=== PATIENT | female | born 1975 | race Caucasian/White ===

== ENCOUNTER 2024-05-21 09:28 | Outpatient (REF) | payer MEDICAID, SELFPAY ==
--- OUTSIDE RECORDS SUMMARY | 2024-05-21 10:22 | XMS_ITS | Encounter Summary ---
Author Organization [employer] Address [address] [place] [address] Care Team Providers Care Locator Name Role Phone Physician, No Pcp Primary Care Provider Unavaila ble Encounter Details Date Type Department Care Team (Late st Contact Info) Description 05/03/[address] [facility] - Main Lab [address] [facility] [place] [address] Katerin Christianson MD [address] [place] [address] [place] [address] Encounter for screening for malignant neoplasm of cervix Social History Tobacco Use Types Packs/Day Years Used Date Smoking Tobacco: Never Assessed Comments Unknown Sex and Gender Information Value Date Recorded Sex Assigned at Female 01/21/2024 3:02 PM EST Legal Sex Female 3:44 PM EDT Gender Identity Female 01/21/2024 3:02 PM EST Sexual Orientation Choose not to disclose 2023 3:02 PM EST documented as of this encounter Functional Status * Are you deaf or do you have serious difficulty hearing? Answer Date of Assessment Author No 01/21/2024 5:21 PM EST Reymundo Booth RN * Are you blind or do you have serious difficulty seeing, even when wearing glasses? Answer Date of Assessment Author No 01/21/2024 5:21 PM Reymundo Aleman RN * Do you have serious difficulty walking or climbing stairs? Answer Date of Assessment Author No 01/21/2024 5:21 PM Reymundo Aleman RN * Do you have serious difficulty dressing or bathing? Answer Date of Assessment Author No 01/21/2024 5:21 PM Reymundo Aleman RN * Because of a physical, mental, or emotional condition, do you have serious difficulty doing errandsalone such as visiting the doctor? Answer Date of Assessment Author No 01/21/2024 5:21 PM Reymundo Aleman RN documented as of this encounter Mental Status * Because of a physical, mental, or emotional condition, do you have serious difficulty concentrating, remembering, or making decisions? (5 years old or older) Answer Entry Date Author No 01/21/2024 5:21 PM Reymundo Aleman RN documented in this encounter Plan of Treatment Not on file documented as of this encounter Procedures Procedure Name Priority Date/Time Associated Diagnosis Comments HPV GENOTYPE Routine 04/29/2024 12:00 AM EST Encounter for screening for malignant neoplasm of cervix HPV WITH REFLEX GENOTYPE Routine 04/29/2024 12:00 AM EST Encounter for screening for malignant neoplasm of cervix PAP SMEAR Routine 04/29/2024 12:00 AM EST Encounter for screening for malignant neoplasm of cervix documented in this encounter Results * (ABNORMAL) HPV genotype (04/29/2024 12:00 AM EST) HPV Type 16 Negative Negative LAB MICROBIOLOGY METHOD 05/07/2024 5:39 PM EST [facility] HPV Type 18/45 Positive(A) Negative LAB MICROBIOLOGY METHOD 05/07/2024 5:39 PM EST [facility] HPV Type 16,18, and others Valid LAB MICROBIOLOGY METHOD 05/07/2024 5:39 PM EST [facility] Brushing/Spatula Cervix uteri structure / Unknown 04/29/2024 05/03/2024 6:44 AM EST us Katerin Christianson MD LAB MOLECULAR DIAGNOSTICS ORD ERABLES Final Result [facility] [address] [place] [address], [place] [phone] * (ABNORMAL) HPV with reflex genotype (04/29/2024 12:00 AM EST) HPV Positive( A) Negative LAB MICROBIOLOGY METHOD 05/03/2024 3:12 PM [facility] Brushing/Spatula Cervix uteri structure / Unknown 04/29/2024 05/03/2024 6:44 AM EST Katerin Christianson MD LAB MOLECULAR DIAGNOSTICS ORD ERABLES Final Result [facility] [address] [place] [address], * Pap smear (04/29/2024 12:00 AM EST) Interpretation Negative for intraepithelial lesion or malignancy 05/05/2024 4:45 PM [facility] Other Findings Shift in rand suggestive of bacterial vaginosis 05/05/2024 4:45 PM [facility] Specimen Adequacy Satisfactory for evaluation, endocervical/dowell sformation zone component present 05/05/2024 4:45 PM [facility] Pap Methodology Liquid Based Pap Test 05/05/2024 4:45 PM [facility] Disclaimer The Pap test is a screening test which carries an inherent false negative rate. These test results should be correlated with the patient's clinical findings and history. This Pap test was processed using an automated screening system. Technical cytopathology services provided by [facility], at [address] [place] [address] (CLIA # [id number]/Kristy Rodriguez MD, Winding Lathe Operator.) 05/05/2024 4:45 PM [facility] Console Pap Interpretation Reported 05/05/2024 4:45 PM EST [facility] Brushing/Spatula Cervix uteri structure / Unknown 04/29/2024 05/03/2024 6:44 AM EST us Katerin Christianson MD LAB CYTOLOGY ORDERABLES Final Result Performing Organization Address City/State/[facility] Co de Phone Number [facility] [address] [place] [address], documented in this encounter Visit Diagnoses Diagnosis Encounter for screening for malignant neoplasm of cervix documented in this encounter Care Teams Locator Relationship Specialty Start Date End Date Physician, No Pcp PCP - General 01/21/24 documented as of this encounter
--- OUTSIDE RECORDS SUMMARY | 2024-05-21 10:22 | XMS_ITS | Clinical Summary ---
Author Organization [facility] Address [address] [place] [address] Phone Care Team Providers Care Lab Technician Name Role Phone Physician, No Pcp Primary Care Provider Unavaila ble Allergies No known active allergies Encounters Date Type Department Care Team Description 05/03/2024 Lab Requisition [facility] - Main Lab [address] [facility] [place] [address] Katerin Christianson MD Encounter for screening for malignant neoplasm of cervix from Last 3 Months Medical History Medical History Date Comments Lupus erythematosus tumidus Fibromyalgia Hypothyroid Thyroid cancer (CMS/HCC) Social History Tobacco Use Types Packs/Day Years Used Date Smoking Tobacco: Never Assessed Comments Unknown Sex and Gender Information Value Date Recorded Sex Assigned at Female 01/21/2024 3:02 PM EST Legal Sex Female 3:44 PM EDT Gender Identity Female 01/21/2024 3:02 PM EST Sexual Orientation Choose not to disclose 2023 3:02 PM EST Obstetrics History Last Filed Vital Signs Vital Sign Reading Time Taken Comments Blood Pressure 140/84 01/21/2024 3:46 PM EST Pulse 65 01/21/2024 3:46 PM EST Temperature 36.5 ??C (97.7 ??F) 01/21/2024 3:46 PM ES T Respiratory Rate 16 01/21/2024 3:46 PM EST Oxygen Saturation 100% 01/21/2024 3:46 PM EST Inhaled Oxygen Concentration - - Weight 73.9 kg (163 lb) 01/21/2024 3:46 PM EST Height 167.6 cm (5' 6 ) 01/21/2024 3:46 PM EST Body Mass Index 26.31 01/21/2024 3:46 PM EST Plan of Treatment Health Maintenance Due Date Last Done Comments Breast Cancer Screening 1975 DTaP,Tdap,and Td Vaccines (1 - Tdap) 09/16/1995 Hepatitis B Vaccines (1 of 3 - 19+ 3-dose series) 09/16/1995 COVID-19 Vaccine ( - 2023-2 5 season) 2023 Influenza Vaccine (#1) 2023 Colorectal Cancer Screening: Colonoscopy 12/18/2023 Depression Screening 12/18/2023 HIV Screening 12/18/2023 Hepatitis C Screening 12/18/2023 Social Influencers of Health Screening 12/18/2023 Cervical Cancer Screening: HPV 04/29/2029 0 04/29/2024, 04/29/2024 HIB Vaccines Aged Out No longer eligi ble based on patient's age to complete this topic HPV Vaccines Aged Out No longer eligi ble based on patient's age to complete this topic Hepatitis A Vaccines Aged Out No long er eligible based on patient's age to complete this topic IPV Vaccines Aged Out No longer eligi ble based on patient's age to complete this topic MMR Vaccines Aged Out No longer eligi ble based on patient's age to complete this topic Meningococcal ACWY Vaccine Aged Out N o longer eligible based on patient's age to complete this topic Meningococcal B Vacine Aged Out No lo nger eligible based on patient's age to complete this topic Pneumococcal Vaccine: Pediatrics (0 to 5 Years) and At-Risk Patients (6 to 64 Years) Aged Out No longer eligible b ased on patient's age to complete this topic RSV Immunization Patients Under 20 months Aged Out No longer eligible b ased on patient's age to complete this topic Varicella Vaccines Aged Out No longer eligible based on patient's age to complete this topic Procedures Procedure Name Priority Date/Time Associated Diagnosis Comments PAP SMEAR Routine 04/29/2024 12:00 AM EST Encounter for screening for malignant neoplasm of cervix HPV GENOTYPE Routine 04/29/2024 12:00 AM EST Encounter for screening for malignant neoplasm of cervix HPV WITH REFLEX GENOTYPE Routine 04/29/2024 12:00 AM EST Encounter for screening for malignant neoplasm of cervix from Last 3 Months Results * (ABNORMAL) HPV genotype (04/29/2024 12:00 AM EST) HPV Type 16 Negative Negative LAB MICROBIOLOGY METHOD 05/07/2024 5:39 PM EST [facility] HPV Type 18/45 Positive(A) Negative LAB MICROBIOLOGY METHOD 05/07/2024 5:39 PM EST [facility] HPV Type 16,18, and others Valid LAB MICROBIOLOGY METHOD 05/07/2024 5:39 PM EST [facility] Brushing/Spatula Cervix uteri structure / Unknown 04/29/2024 05/03/2024 6:44 AM EST Katerin Christianson MD LAB MOLECULAR DIAGNOSTICS ORD ERABLES Final Result Performing Organization Address City/[facility]/ZIP Co de Phone Number [facility] [address] [place] [address], [place] [phone] * (ABNORMAL) HPV with reflex genotype (04/29/2024 12:00 AM EST) HPV Positive( A) Negative LAB MICROBIOLOGY METHOD 05/03/2024 3:12 PM EST [facility] Brushing/Spatula Cervix uteri structure / Unknown 04/29/2024 05/03/2024 6:44 AM EST Katerin Christianson MD LAB MOLECULAR DIAGNOSTICS ORD ERABLES Final Result [facility] [address] [place] [address], [place] [phone] * Pap smear (04/29/2024 12:00 AM EST) Interpretation Negative for intraepithelial lesion or malignancy 05/05/2024 4:45 PM EST [facility] Other Findings Shift in rand suggestive of bacterial vaginosis 05/05/2024 4:45 PM [facility] Specimen Adequacy Satisfactory for evaluation, endocervical/dowell sformation zone component present 05/05/2024 4:45 PM [facility] Pap Methodology Liquid Based Pap Test 05/05/2024 4:45 PM [facility] Disclaimer The Pap test is a screening test which carries an inherent false negative rate. These test results should be correlated with the patient's clinical findings and history. This Pap test was processed using an automated screening system. Technical cytopathology services provided by [facility], at [address] [place] [address] (CLIA # [id number]/Kristy Rodriguez MD, Bar Porter.) 05/05/2024 4:45 PM [facility] Console Pap Interpretation Reported 05/05/2024 4:45 PM [facility] Brushing/Spatula Cervix uteri structure / Unknown 04/29/2024 05/03/2024 6:44 AM EST Katerin Christianson MD LAB CYTOLOGY ORDERABLES Final Result [facility] [address] [place] [address], from Last 3 Months Insurance MEDICAID - [place] Care Teams Lab Technician Relationship Specialty Start Date End Date Physician, No Pcp PCP - General 01/21/24
[2024-05-22 12:38] LABS: Thyroglobulin 2.3 ng/mL
== END 2024-05-21 09:29 | disposition home or self-care (01) ==
LOC: HO.LAB 09:28
PROVIDERS: PCP Internal Medicine; Visit Provider Internal Medicine
DX: G56.01 Carpal tunnel syndrome, right upper limb (principal); M32.9 Systemic lupus erythematosus, unspecified; M65.4 Radial styloid tenosynovitis [de Quervain]; M79.7 Fibromyalgia
CPT/HCPCS: 36415; 84432; 84443

== ENCOUNTER 2024-06-02 11:22 | Outpatient (REF) | payer MEDICAID, SELFPAY ==
--- NOTE | 2024-06-02 | EMG_ITS ---
Chief complaint: Numbness on right thumb and lateral wrist, pain on both wrists right worse than left, finger numbness at nighttime. Reason for referral: Evaluate for ulnar neuropathy Referred by: Dr. Christianson Procedure done: Bilateral upper extremities NCS/EMG Precautions and/or limitations: None The limb temperature was monitored continuously and remained between 32-36 degrees C during the performance of the NCS. Nerve Conduction Studies Anti Sensory Summary Table ?Stim Site NR Onset (ms) Norm Onset (ms) Peak (ms) Norm Peak (ms) O-P Amp (?V) Norm O-P Amp Site1 Site2 Delta-0 (ms) Dist (cm) Jimmie (m/s) Norm Jimmie (m/s) Left Median Anti Sensory (2nd Digit) Wrist ? 2.5 3.2 <3.6 45.1 >10 Wrist 2nd Digit 2.5 14.0 56 Right Median Anti Sensory (2nd Digit) Wrist ? 2.6 3.3 <3.6 33.3 >10 Wrist 2nd Digit 2.6 14.0 54 Right Radial Anti Sensory (Thumb) Forearm ? 2.0 2.7 <3.1 15.3 Forearm Thumb 2.0 0.0 Left Ulnar Anti Sensory (5th Digit) Wrist ? 2.4 3.1 <3.7 27.2 >15.0 Wrist 5th Digit 2.4 14.0 58 Right Ulnar Anti Sensory (5th Digit) Wrist ? 2.2 3.0 <3.7 23.2 >15.0 Wrist 5th Digit 2.2 14.0 64 Motor Summary Table ?Stim Site NR Onset (ms) Norm Onset (ms) O-P Amp (mV) Norm O-P Amp iAmp (mV) Amp (1st) (%) Site1 Site2 Delta-0 (ms) Dist (cm) Jimmie (m/s) Norm Jimmie (m/s) Left Median Motor (Abd Poll Brev) Wrist ? 3.4 <3.9 11.9 >4.5 14.2 100.0 Elbow Wrist 3.9 21.0 54 >45 Elbow ? 7.3 10.6 12.8 89.1 Right Median Motor (Abd Poll Brev) Wrist ? 3.7 <3.9 12.7 >4.5 14.9 100.0 Elbow Wrist 3.8 21.0 55 >45 Elbow ? 7.5 12.4 14.6 97.6 Left Ulnar Motor (Abd Dig Minimi) Wrist ? 2.9 <3.0 7.8 >5 9.1 100.0 B Elbow Wrist 3.4 19.0 56 >45 B Elbow ? 6.3 7.0 8.6 89.7 A Elbow B Elbow 2.1 10.0 48 >45 A Elbow ? 8.4 6.7 8.1 85.9 Right Ulnar Motor (Abd Dig Minimi) Wrist ? 3.0 <3.0 8.4 >5 10.3 100.0 B Elbow Wrist 3.0 19.0 63 >45 B Elbow ? 6.0 8.0 10.0 95.2 A Elbow B Elbow 1.3 10.0 77 >45 A Elbow ? 7.3 7.3 9.0 86.9 EMG ?Side Muscle Nerve Root Ins Act Fibs Psw Amp Dur Poly Recrt Int Pat Comment Right 1stDorInt Ulnar C8-T1 Nml Nml Nml Nml Nml 0 Nml Complete Right FlexCarRad Median C6-7 Nml Nml Nml Nml Nml 0 Nml Complete Right Biceps Musculocut C5-6 Nml Nml Nml Nml Nml 0 Nml Complete Right Triceps Radial C6-7-8 Nml Nml Nml Nml Nml 0 Nml Complete Right Deltoid Axillary C5-6 Nml Nml Nml Nml Nml 0 Nml Complete Left 1stDorInt Ulnar C8-T1 Nml Nml Nml Nml Nml 0 Nml Complete Left FlexCarRad Median C6-7 Nml Nml Nml Nml Nml 0 Nml Complete Left Biceps Musculocut C5-6 Nml Nml Nml Nml Nml 0 Nml Complete Left Triceps Radial C6-7-8 Nml Nml Nml Nml Nml 0 Nml Complete Left Deltoid Axillary C5-6 Nml Nml Nml Nml Nml 0 Nml Complete FINDINGS: All motor and sensory nerves tested showed normal latencies, amplitudes and conduction velocities. Concentric needle EMG was performed in selected muscles of the bilateral upper extremities. Study did not reveal signs of electric abnormalities as shown in the table above. IMPRESSION: 1. This is a normal study. 2. There is no electrodiagnostic evidence for median neuropathy, ulnar neuropathy, brachial plexopathy, or cervical radiculopathy. Thank you for your kind referral. Agnieszka Ernst MD, JOHANNA Board Certified, [place] Board [employer] and Rehabilitation (ABPMR) Board Certified, [place] Board of Electrodiagnostic Medicine (ABEM) CODIN [phone] MTDD
--- OUTSIDE RECORDS SUMMARY | 2024-06-02 13:44 | XMS_ITS | Encounter Summary ---
Author Organization [employer] Address [address] [place] [address] Care Team Providers Care Machine Operator Slitter Technician Name Role Phone Physician, No Pcp Primary Care Provider Unavaila ble Encounter Details Date Type Department Care Team (Late st Contact Info) Description 05/03/2024 Lab Requisition [facility] - Main Lab [address] [facility] [place] [address] Katerin Christianson MD [address] [place] [address] [place] [address] Encounter for screening for malignant neoplasm of [...] LAB MICROBIOLOGY METHOD 05/07/2024 5:39 PM EST [facility] HPV Type 18/45 Positive(A) Negative LAB MICROBIOLOGY METHOD 05/07/2024 5:39 PM EST [facility] HPV Type 16,18, and others Valid LAB MICROBIOLOGY METHOD 05/07/2024 5:39 PM EST [facility] Brushing/Spatula Cervix uteri structure / Unknown 04/29/2024 05/03/2024 6:44 AM EST us Katerin Christianson MD LAB MOLECULAR DIAGNOSTICS ORD ERABLES Final Result [facility] [address] [place] [address], [place] [phone] * (ABNORMAL) HPV with reflex genotype (04/29/2024 12:00 AM EST) HPV Positive( A) Negative LAB MICROBIOLOGY METHOD 05/03/2024 3:12 PM [facility] Brushing/Spatula Cervix uteri structure / Unknown 04/29/2024 05/03/2024 6:44 AM EST Katerin Christianson MD LAB MOLECULAR DIAGNOSTICS ORD ERABLES Final Result [facility] [address] [place] [address], * Pap smear (04/29/2024 12:00 AM EST) Interpretation Negative for intraepithelial lesion or malignancy 05/05/2024 4:45 PM [facility] Other Findings Shift in rand suggestive of bacterial vaginosis 05/05/2024 4:45 PM [facility] Specimen Adequacy Satisfactory for evaluation, endocervical/dowell sformation zone component present 05/05/2024 4:45 PM [facility] Pap Methodology Liquid Based Pap Test 05/05/2024 4:45 PM [facility] Disclaimer The Pap test is a screening test which carries an inherent false negative rate. These test results should be correlated with the patient's clinical findings and history. This Pap test was processed using an automated screening system. Technical cytopathology services provided by [facility], at [address] [place] [address] (CLIA # [id number]/Kristy Rodriguez MD, Server Assistant.) 05/05/2024 4:45 PM [facility] Console Pap Interpretation Reported 05/05/2024 4:45 PM EST [facility] Brushing/Spatula Cervix uteri structure / Unknown 04/29/2024 05/03/2024 6:44 AM EST us Katerin Christianson MD LAB CYTOLOGY ORDERABLES Final Result Performing Organization Address City/State/[facility] Co de Phone Number [facility] [address] [place] [address], documented in this encounter Visit Diagnoses Diagnosis Encounter for screening for malignant neoplasm of cervix documented in this encounter Care Teams Machine Operator Slitter Technician Relationship Specialty Start Date End Date Physician, No Pcp PCP - General 01/21/24 documented as of this encounter
--- OUTSIDE RECORDS SUMMARY | 2024-06-02 13:44 | XMS_ITS | Clinical Summary ---
Author Organization [facility] Address [address] [place] [address] Phone Care Team Providers Care Compounding Technician Name Role Phone Physician, No Pcp Primary Care Provider Unavaila ble Allergies No known active allergies Encounters Date Type Department Care Team Description 05/03/2024 Lab Requisition [facility] - Main Lab 299 [facility] [place] [address] Katerin Christianson MD Encounter for [...] LAB MICROBIOLOGY METHOD 05/07/2024 5:39 PM EST [facility] HPV Type 18/45 Positive(A) Negative LAB MICROBIOLOGY METHOD 05/07/2024 5:39 PM EST [facility] HPV Type 16,18, and others Valid LAB MICROBIOLOGY METHOD 05/07/2024 5:39 PM EST [facility] Brushing/Spatula Cervix uteri structure / Unknown 04/29/2024 05/03/2024 6:44 AM EST Katerin Christianson MD LAB MOLECULAR DIAGNOSTICS ORD ERABLES Final Result Performing Organization Address City/[facility]/ZIP Co de Phone Number [facility] [address] [place] [address], [place] [phone] * (ABNORMAL) HPV with reflex genotype (04/29/2024 12:00 AM EST) HPV Positive( A) Negative LAB MICROBIOLOGY METHOD 05/03/2024 3:12 PM EST [facility] Brushing/Spatula Cervix uteri structure / Unknown 04/29/2024 05/03/2024 6:44 AM EST Katerin Christianson MD LAB MOLECULAR DIAGNOSTICS ORD ERABLES Final Result [facility] [address] [place] [address], [place] [phone] * Pap smear (04/29/2024 12:00 AM EST) Interpretation Negative for intraepithelial lesion or malignancy 05/05/2024 4:45 PM EST [facility] Other Findings Shift in rand suggestive of bacterial vaginosis 05/05/2024 4:45 PM [facility] Specimen Adequacy Satisfactory for evaluation, endocervical/dowell sformation zone component present 05/05/2024 4:45 PM [facility] Pap Methodology Liquid Based Pap Test 05/05/2024 4:45 PM [facility] Disclaimer The Pap test is a screening test which carries an inherent false negative rate. These test results should be correlated with the patient's clinical findings and history. This Pap test was processed using an automated screening system. Technical cytopathology services provided by [facility], at [address] [place] [address] (CLIA # [id number]/Kristy Rodriguez MD, Cannery Tender Engineer.) 05/05/2024 4:45 PM [facility] Console Pap Interpretation Reported 05/05/2024 4:45 PM [facility] Brushing/Spatula Cervix uteri structure / Unknown 04/29/2024 05/03/2024 6:44 AM EST Katerin Christianson MD LAB CYTOLOGY ORDERABLES Final Result [facility] [address] [place] [address], from Last 3 Months Insurance [place] - [place] Care Teams Compounding Technician Relationship Specialty Start Date End Date Physician, No Pcp PCP - General 01/21/24
== END 2024-06-02 11:23 | disposition home or self-care (01) ==
LOC: HO.NEURO 11:22
PROVIDERS: PCP Internal Medicine; Visit Provider Internal Medicine
DX: G56.23 Lesion of ulnar nerve, bilateral upper limbs (principal); R20.0 Anesthesia of skin
CPT/HCPCS: 95886; 95911

== ENCOUNTER → 2024-06-02 11:30 | Outpatient (BNV) | payer MEDICAID, SELFPAY | PROVIDERS: PCP Internal Medicine; Visit Provider Physical Medicine & Rehabilitation | DX: R20.0 Anesthesia of skin (principal); R20.2 Paresthesia of skin | CPT/HCPCS: 95886; 95911 ==

== ENCOUNTER 2024-07-13 14:58 | Outpatient (AMB) | payer MEDICAID, SELFPAY ==
--- NOTE | 2024-07-13 15:08 | A.OFFVIS_ITS ---
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 She states at night her bilateral hands are asleep. She reports throbbing pain when her hand is at her side just hanging and a current feeling running through the right arm with extension to reach for things. She reports intermittent swelling. She is wearing a Velcro wrist splint and states this helps her mildly. IMPRESSION: 1. This is a normal study. 2. There is no electrodiagnostic evidence for median neuropathy, ulnar neuropathy, brachial plexopathy, or cervical radiculopathy. 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 She states at night her bilateral hands are asleep. She reports throbbing pain when her hand is at her side just hanging and a current feeling running through the right arm with extension to reach for things. She reports intermittent swelling. She is wearing a Velcro wrist splint and states this helps her mildly. IMPRESSION: 1. This is a normal study. 2. There is no electrodiagnostic evidence for median neuropathy, ulnar neur opathy, brachial plexopathy, or cervical radiculopathy. 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 Good APB muscle firing and good finger cross. Vascular: Capillary refill brisk. ROM: Patient can make a fist and extend all their digits. Skin: No lacerations or abrasions noted. General: No ecchymosis. No erythema or evidence of infection. [] Assessment & Plan Assessment & Plan (1) Numbness and tingling in right hand: Code(s): R20.0 - Anesthesia of skin; R20.2 - Paresthesia of skin Category: Medical Plan 1. Numbness and tingling of right hand Negative EMG Patient is educated about this condition Patient is educated about the typical treatment course At this time, patient is informed that no acute intervention is did, as she has a negative EMG and nerve conduction study Patient is educated on symptomatic management Follow-up in 6 months for referral for repeat EMG of numbness and tingling persists Coding Level of Care Code New Pt Level 3 (69828) Diagnoses Numbness and tingling in right hand R20.0; R20.2
[2024-07-13 15:09] VITALS: BMI 25.8
--- OUTSIDE RECORDS SUMMARY | 2024-07-13 16:10 | XMS_ITS | Clinical Summary ---
Author Organization [facility] Address [address] [place] [address] Phone Care Team Providers Care Boat Hand Name Role Phone Physician, No Pcp Primary Care Provider Unavaila ble Allergies No known active allergies Encounters Date Type Department Care Team Description 05/03/2024 Lab Requisition [facility] - Main Lab [address] [facility] [place] [address] Katerin Christianson MD Encounter for screening for malignant neoplasm of cervix from Last 3 Months Medical History Medical History Date Comments Lupus erythematosus tumidus Fibromyalgia Hypothyroid Thyroid cancer (CMS/HCC V24, CMS/HCC V28) Social History Tobacco Use Types Packs/Day Years [...] - 19+ 3-dose series) 09/16/1995 COVID-19 Vaccine (1 - 2023-2 5 season) 2023 Colorectal Cancer Screening: Colonoscopy 12/18/2023 Depression Screening 12/18/2023 HIV Screening 12/18/2023 Hepatitis C Screening 12/18/2023 Social Influencers of Health Screening 12/18/2023 Influenza Vaccine (Season Ended) 2024 Cervical Cancer Screening: HPV 04/29/2029 0 04/29/2024, [...] age to complete this topic Meningococcal B Vaccine Aged Out No l onger eligible based on patient's age to complete [...] LAB MICROBIOLOGY METHOD 05/07/2024 5:39 PM EST [facility] HPV Type 18/45 Positive(A) Negative LAB MICROBIOLOGY METHOD 05/07/2024 5:39 PM EST [facility] HPV Type 16,18, and others Valid LAB MICROBIOLOGY METHOD 05/07/2024 5:39 PM EST [facility] Brushing/Spatula Cervix uteri structure / Unknown 04/29/2024 05/03/2024 6:44 AM EST Katerin Christianson MD LAB MOLECULAR DIAGNOSTICS ORD ERABLES Final Result Performing Organization Address City/Special Care Hospital/ZIP Co de Phone Number [facility] [address] [place] [address], [place] [phone] * (ABNORMAL) HPV with reflex genotype (04/29/2024 12:00 AM EST) HPV Positive( A) Negative LAB MICROBIOLOGY METHOD 05/03/2024 3:12 PM EST [facility] Brushing/Spatula Cervix uteri structure / Unknown 04/29/2024 05/03/2024 6:44 AM EST Katerin Christianson MD LAB MOLECULAR DIAGNOSTICS ORD ERABLES Final Result [facility] [address] [place] [address], [place] [phone] * Pap smear (04/29/2024 12:00 AM EST) Interpretation Negative for intraepithelial lesion or malignancy 05/05/2024 4:45 PM EST [facility] Other Findings Shift in rand suggestive of bacterial vaginosis 05/05/2024 4:45 PM [facility] Specimen Adequacy Satisfactory for evaluation, endocervical/dowell sformation zone component present 05/05/2024 4:45 PM [facility] Pap Methodology Liquid Based Pap Test 05/05/2024 4:45 PM [facility] Disclaimer The Pap test is a screening test which carries an inherent false negative rate. These test results should be correlated with the patient's clinical findings and history. This Pap test was processed using an automated screening system. Technical cytopathology services provided by [facility], at [address] [place] [address] (CLIA # [id number]/Kristy Rodriguez MD, Physician General Internal Medicine.) 05/05/2024 4:45 PM [facility] Console Pap Interpretation Reported 05/05/2024 4:45 PM [facility] Brushing/Spatula Cervix uteri structure / Unknown 04/29/2024 05/03/2024 6:44 AM EST us Katerin Christianson MD LAB CYTOLOGY ORDERABLES Final Result [facility] [address] [place] [address], [place] [phone] from Last 3 Months Insurance MEDICAID - [place] Care Teams Boat Hand Relationship Specialty Start Date End Date Physician, No Pcp PCP - General 01/21/24
--- OUTSIDE RECORDS SUMMARY | 2024-07-13 16:10 | XMS_ITS | Encounter Summary ---
Author Organization [facility] Address [address] [place] [address] Care Team Providers Care Electronic Organ Mechanic Name Role Phone Physician, No Pcp Primary Care Provider Unavaila ble Encounter Details Date Type Department Care Team (Late st Contact Info) Description 05/03/2024 Lab Requisition [facility] - Main Lab [address] [facility] [place] [address] Katerin Christianson MD [address] [place] [address] [place] [address] Encounter for screening for malignant neoplasm of [...] LAB MICROBIOLOGY METHOD 05/07/2024 5:39 PM EST [facility] HPV Type 18/45 Positive(A) Negative LAB MICROBIOLOGY METHOD 05/07/2024 5:39 PM EST [facility] HPV Type 16,18, and others Valid LAB MICROBIOLOGY METHOD 05/07/2024 5:39 PM EST [facility] Brushing/Spatula Cervix uteri structure / Unknown 04/29/2024 05/03/2024 6:44 AM EST us Katerin Christianson MD LAB MOLECULAR DIAGNOSTICS ORD ERABLES Final Result [facility] [address] [place] [address], [place] [phone] * (ABNORMAL) HPV with reflex genotype (04/29/2024 12:00 AM EST) HPV Positive( A) Negative LAB MICROBIOLOGY METHOD 05/03/2024 3:12 PM [facility] Brushing/Spatula Cervix uteri structure / Unknown 04/29/2024 05/03/2024 6:44 AM EST Katerin Christianson MD LAB MOLECULAR DIAGNOSTICS ORD ERABLES Final Result [facility] [address] [place] [address], * Pap smear (04/29/2024 12:00 AM EST) Interpretation Negative for intraepithelial lesion or malignancy 05/05/2024 4:45 PM [facility] Other Findings [...] screening system. Technical cytopathology services provided by [facility], at [address] [place] [id number] (CLIA # [id number]/Kristy Rodriguez MD, Bite Block Maker.) 05/05/2024 4:45 PM [facility] Console Pap Interpretation Reported 05/05/2024 4:45 PM EST [facility] Brushing/Spatula Cervix uteri structure / Unknown 04/29/2024 05/03/2024 6:44 AM EST us Katerin Christianson MD LAB CYTOLOGY ORDERABLES Final Result Performing Organization Address City/State/[facility] Co de Phone Number [facility] [address] [place] [address], documented in this encounter Visit Diagnoses Diagnosis Encounter for screening for malignant neoplasm of cervix documented in this encounter Care Teams Electronic Organ Mechanic Relationship Specialty Start Date End Date Physician, No Pcp PCP - General 01/21/24 documented as of this encounter
== END 2024-07-13 15:23 | disposition home or self-care (01) ==
LOC: HO.HOS 14:59
PROVIDERS: PCP Internal Medicine
DX: R20.0 Anesthesia of skin (principal); R20.2 Paresthesia of skin
CPT/HCPCS: 99203

== ENCOUNTER → 2024-07-13 14:58 | Outpatient (BNVA) | payer MEDICAID, SELFPAY | PROVIDERS: PCP Internal Medicine | DX: R20.0 Anesthesia of skin (principal); R20.2 Paresthesia of skin | CPT/HCPCS: 99212 ==

== ENCOUNTER 2024-07-30 13:04 | Outpatient (REF) | payer MEDICAID, SELFPAY ==
[2024-07-30 13:12] LABS: MANUAL DIFF FLAG NO
[2024-07-30 13:50] LABS: Basophils Percent Auto 0.3 % (0-2); Eosinophils Absolute Auto 0.1 X10*3/uL (0.0-0.4); Eosinophils Percent Auto 2.3 % (0-4); Hematocrit 39.5 % (37.0-47.0); Hemoglobin 12.8 g/dl (12.0-16.0); Imm Gran Abs Auto 0.01 X10*3/uL (0.00-0.03); Imm Gran Pct Auto 0.2 % (0.0-0.4); Lymphocytes Absolute Auto 2.1 X10*3/uL (1.2-4.9); Lymphocytes Percent Auto 34.4 % (20-40); Mean Corpuscular HGB Conc 32.4 g/dl (31.0-35.0); Mean Corpuscular Hemoglobin 28.6 pg (27.0-33.0); Mean Corpuscular Volume 88.2 fL (80.0-98.0); Mean Platelet Volume 10.7 fL (9.4-12.3); Monocytes Absolute Auto 0.5 X10*3/uL (0.1-1.2); Neutrophils Absolute Auto 3.4 x10*3/uL (2.0-8.3); Neutrophils Percent Auto 54.8 % (45-73); Platelet Count 200 X10*3/uL (160-400); Red Blood Count 4.48 X10*6/uL (4.20-5.50); Red Cell Distribution Width 12.7 % (11.0-16.0); White Blood Count 6.1 X10*3/uL (4.8-10.8)
[2024-07-30 14:36] LABS: Thyroid Stimulating Hormone 1.43 uIU/mL (0.32-4.0)
== END 2024-07-30 13:05 | disposition home or self-care (01) ==
LOC: HO.LAB 13:04
PROVIDERS: PCP Internal Medicine; Visit Provider Internal Medicine
DX: G56.03 Carpal tunnel syndrome, bilateral upper limbs (principal); G57.63 Lesion of plantar nerve, bilateral lower limbs; K29.60 Other gastritis without bleeding; M35.09 Sjogren syndrome with other organ involvement; Z85.850 Personal history of malignant neoplasm of thyroid
CPT/HCPCS: 36415; 84443; 85025

== ENCOUNTER 2024-09-14 15:34 | Outpatient (REF) | payer MEDICAID, SELFPAY ==
[2024-09-14 17:23] LABS: Free T4 (Free Thyroxine) 0.83 ng/dL (0.71-1.85); Thyroid Stimulating Hormone 1.92 uIU/mL (0.32-4.0)
[2024-09-15 19:08] LABS: Thyroglobulin 2.6 ng/mL; Thyroglobulin Antibodies <1 IU/mL (< or = 1)
== END 2024-09-14 15:35 | disposition home or self-care (01) ==
LOC: HO.LAB 15:34
PROVIDERS: PCP Internal Medicine; Visit Provider Student in an Organized Health Care Education/Training Program
DX: Z08 Encounter for follow-up examination after completed treatment for malignant neoplasm (principal); Z85.850 Personal history of malignant neoplasm of thyroid; Z80.8 Family history of malignant neoplasm of other organs or systems
CPT/HCPCS: 36415; 84432; 84439; 84443; 86800; 99202

== ENCOUNTER 2024-09-14 15:34 | Outpatient (AMB) | payer MEDICAID, SELFPAY ==
[2024-09-14 15:36] VITALS: BP 122/78; PULSE 81; O2SAT 98; BMI 27.1
--- NOTE | 2024-09-14 15:36 | A.OFFVIS_ITS ---
Vital Signs 09/14/24 15:36 Height 5 ft 6 in Weight 167 lb 12.348 oz BMI 27.1 BP 122/78 Blood Pressure Location Rt brachial Position Sitting Pulse 81 Pulse Source Pulse Oximeter Pulse Oximetry (%) 98 Oxygen Delivery Method Room Air Intake Visit Reasons: Thyroid cancer Intake Note: New patient present today for Thyroid cancer. Continuous Churn Buttermaker Required: No Accompanied by: Self / Same As Patient Allergies No Known Allergies Allergy (Verified 09/14/24 15:40) Medication List - Last Reconciled 09/14/24 by Keesha Hernandez MD hydroxychloroquine 400 mg PO DAILY ibuprofen 600 mg PO Q6H naproxen 500 mg PO BID neomycin-polymyxin B-dexameth 3.5mg/mL-10,000 unit/mL-0.1 % drps ophthalmic (eye) omeprazole 40 mg PO DAILY HPI Comments Details: 48-year-old female coming in today for initial evaluation of thyroid cancer. [facility] summer of 2023. History of thyroid cancer All of this was in [place] 2019: found to have to have thyroid nodules 05/2019: FNA biopsy of the right sided nodule, showed thyroid cancer? 2020: Status post right lobectomy which showed cancer. then apparently was followed with surveilance US for left sided nodules, Then moved to [facility] summer 202305/21/2024: TSH 1.40, thyroglobulin 2.3 07/30/2024: TSH: 1.43 reports some fullness in the neck. No difficulty swallowing. Didnt require levothyroxine . Family history of thyroid cancer in brother and maternal cousin. Never smoker Physical exam General: sitting comfortably in no acute distress HEENT: normocephalic/atraumatic, moist oral mucosa Neck: supple, symmetrical, no palpable lymph nodes Cardiac: normal heart sounds Pulm: normal breath sounds B/L, no added breath sounds Abd: not distended, no tenderness Extremities: no edema, no signs of myxedema Laboratory Tests 05/21/24 07/30/24 09:52 13:11 TSH 1.40 1.43 Thyroglobulin 2.3 L [facility] Medical History (Updated 09/14/24 @ 15:53 by Keesha Hernandez MD) Fibromyalgia Lupus (systemic lupus erythematosus) History of thyroid cancer Surgical History (Updated 09/14/24 @ 15:53 by Keesha Hernandez MD) History of lobectomy of thyroid Social History (Updated 07/13/24 @ 15:12 by DEVORA Pascual) Alcohol intake: never Patient Tobacco Use Status: Never used Tobacco Current occupational status: employed 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 This was diagnosed in [facility], status post right lobectomy with pathology showing thyroid cancer. I do not have any pathology report so I do not know the staging or SHAILA risk of recurrence. I am assuming it must have been a low risk cancer given that they did not proceed with completion thyroidectomy or radioactive iodine. She is going to try to obtain some of her records and get them translated because they are in [place]ese. At this time she does report some fullness in her neck and I will obtain a ultrasound of her neck. Reportedly she does have some left-sided nodules but they were small per patient. She did not require levothyroxine postoperatively. Most recent TSH from July 2024 was normal at 1.43. Also her thyroglobulin level of 2.3 is reassuring as after lobectomy ideally we would like to see a level below 30. Plan: -ordered ultrasound of the neck -ordered TSH, free T4, TG and TG antibody levels -obtain records on pathology -follow up in 6 weeks to discuss results Plan See above Orders: Orders Free T4 (Free Thyroxine) Today Z85.850 - Personal history of malignant neoplasm of thyroid US soft tiss head and/or neck Today Z85.850 - Personal history of malignant neoplasm of thyroid Thyroid Stimulating Hormone Today Z85.850 - Personal history of malignant neoplasm of thyroid Thyroglobulin Today Z85.850 - Personal history of malignant neoplasm of thyroid Thyroglobulin Antibodies Today Z85.850 - Personal history of malignant neoplasm of thyroid Thyroglobulin Tumor Marker Today Z85.850 - Personal history of malignant neoplasm of thyroid Patient Instructions: do ultrasound of the neck ,someone will call you to schedule this Do blood work Coding Level of Care Code New Pt Level 4 (13817) Complex EM visit Add On G2211 Diagnoses History of thyroid cancer Z85.850
--- OUTSIDE RECORDS SUMMARY | 2024-09-14 16:00 | XMS_ITS | Patient Health Record ---
Author Organization [facility] Address [address] [place] [address] Care Team Providers Care Experimental Technician Name Role Phone Katerin Christianson Primary Care Provider Otto Noble Unavailable [phone] Allergies No Known Allergies Reason For Referral No Information Medications Medication SIG (Take, Route, Fr equency, Duration) Notes Start Date End Date Status Omeprazole 40 MG 1 capsule Orally Onc e a day every morning for 30 days 08/06/2024 Active Plaquenil 200 MG as directed Orally 08/06/2024 Active Omeprazole 20 MG 1 capsule 1/2 to 1 h our before morning meal Orally Once a day for 30 day(s) 08/06/2024 Active Immunizations Vaccine Route Administration Date Status Comme nts Influenza Unknown 08/06/2024 Refused Social History Tobacco Use: Social History Observation Description Date Details (start date - stop date) Never Smoker NA - NA Tobacco Control (Standard) Question Answer Notes Tobacco use: Nonsmoker AUDIT-C (Standard) Question Answer Notes Did you have a drink containing alcohol in the p ast year? No Points 0 Interpretation Negative Section Notes: Nonsmoker; no sig alcohol Born in [place], raised in [place], then lived in [place] for 30 years--came [place] in 20[place] Problems Problem Type SNOMED Code ICD Code Onset Dates Problem Status W/U Status Risk Notes Problem Constipation (K59.00) Active confirmed Problem Gastroesophageal reflux disease (855209535) GERD (gastroesophage al reflux disease) (K21.9) Active confirmed Vital Signs Temperature 98.6 degrees Fahrenheit 08/06/2024 Blood pressure diastolic 01 mm Hg 08/06/2024 Height 66 in 08/06/2024 Blood pressure systolic 001 mm Hg 08/06/2024 Weight 164.4 lbs 08/06/2024 BMI 26.53 kg/m2 08/06/2024 Procedures Procedure Date Ordered Date Performed Result Body Sit e UPPER GI ENDOSCOPY 08/06/2024 N/A COLONOSCOPY 08/06/2024 N/A Encounters Encounter Location Date Provider Diagnosis [facility] [address] [place] [address] 08/06/2024 Otto Lester Constipation K59.00 ; GERD (gastroesophageal reflux disease) K21.9 ; History of colon polyps Z86.0100 ; Family history of colon cancer Z80.0 ; Upper abdominal pain R10.10 ; Abdominal bloating R14.0 and Colon cancer screening Z12.11 Assessments Encounter Date Diagnosis (ICD Code) Assessment Notes Treatment Notes Treatment Clinical Notes Section Notes 08/06/2024 Constipation (ICD-10 - K59.00) For the constipation: Eat healthy with fruits, vegetables, and a lot of water Take 2 Metamucil fiber pills once or twice every daty with a lot of water Take Miralax once or twice a day in a glass of water for constipation Overall, Shelbi appears very well. We did review her GI symptoms in detail today. We did review that her abdominal bloating and discomfort, as well as issues with her hemorrhoids, may very well be in relation to the chronic constipation. I did recommend a trial of some daily or twice a day Metamucil fiber pills with plenty of water, as well as some MiraLAX daily if need be. I did advise her to stay on a healthy diet with plenty of fruits, vegetables, and water. I do not have any of the records in regard to her GI procedures in [place] unfortunately. Based on her report I we will schedule her for a colonoscopy as that had been recommended to her by her physicians in [place]. We did review the rationale for this in regard to colorectal cancer prevention and/or early detection. I also recommended an upper endoscopy on the same day given her ongoing issues with what sounds like daily heartburn. Full consent has been attained from her for both procedures, including risks of bleeding and perforation. The procedures will be done with monitored anesthesia care. In regard to the upper abdominal discomfort I shall also schedule her for an abdominal ultrasound to rule out symptomatic gallstones. I did advise her to continue the omeprazole daily and I will send her a prescription for 40 mg/day since that does seem to have worked better for her than the 20 mg by her description. She is not sure presently whether or not she is taking 20 or 40 mg and therefore I will send the 40 mg to be sure she is on the right dose. Shelbi was comfortable with this plan. Thank you again for allowing me to participate in Shelbi's care. I shall continue to keep you advised of her progress. 08/06/2024 GERD (gastroesophagea l reflux disease) (ICD-10 - K21.9) Overall, Shelbi appears very well. We did review her GI symptoms in detail today. We did review that her abdominal bloating and discomfort, as well as issues with her hemorrhoids, may very well be in relation to the chronic constipation. I did recommend a trial of some daily or twice a day Metamucil fiber pills with plenty of water, as well as some MiraLAX daily if need be. I did advise her to stay on a healthy diet with plenty of fruits, vegetables, and water. I do not have any of the records in regard to her GI procedures in [facility] unfortunately. Based on her report I we will schedule her for a colonoscopy as that had been recommended to her by her physicians in [place]. We did review the rationale for this in regard to colorectal cancer prevention and/or early detection. I also recommended an upper endoscopy on the same day given her ongoing issues with what sounds like daily heartburn. Full consent has been attained from her for both procedures, including risks of bleeding and perforation. The procedures will be done with monitored anesthesia care. In regard to the upper abdominal discomfort I shall also schedule her for an abdominal ultrasound to rule out symptomatic gallstones. I did advise her to continue the omeprazole daily and I will send her a prescription for 40 mg/day since that does seem to have worked better for her than the 20 mg by her description. She is not sure presently whether or not she is taking 20 or 40 mg and therefore I will send the 40 mg to be sure she is on the right dose. Shelbi was comfortable with this plan. Thank you again for allowing me to participate in Shelbi's care. I shall continue to keep you advised of her progress. 08/06/2024 History of colon polyps (ICD-10 - Z86.0100) Overall, Shelbi appears very well. We did review her GI symptoms in detail today. We did review that her abdominal bloating and discomfort, as well as issues with her hemorrhoids, may very well be in relation to the chronic constipation. I did recommend a trial of some daily or twice a day Metamucil fiber pills with plenty of water, as well as some MiraLAX daily if need be. I did advise her to stay on a healthy diet with plenty of fruits, vegetables, and water. I do not have any of the records in regard to her GI procedures in [facility] unfortunately. Based on her report I we will schedule her for a colonoscopy as that had been recommended to her by her physicians in [place]. We did review the rationale for this in regard to colorectal cancer prevention and/or early detection. I also recommended an upper endoscopy on the same day given her ongoing issues with what sounds like daily heartburn. Full consent has been attained from her for both procedures, including risks of bleeding and perforation. The procedures will be done with monitored anesthesia care. In regard to the upper abdominal discomfort I shall also schedule her for an abdominal ultrasound to rule out symptomatic gallstones. I did advise her to continue the omeprazole daily and I will send her a prescription for 40 mg/day since that does seem to have worked better for her than the 20 mg by her description. She is not sure presently whether or not she is taking 20 or 40 mg and therefore I will send the 40 mg to be sure she is on the right dose. Shelbi was comfortable with this plan. Thank you again for allowing me to participate in Shelbi's care. I shall continue to keep you advised of her progress. 08/06/2024 Family history of colon cancer (ICD-10 - Z80.0) Overall, Shelbi appears very well. We did review her GI symptoms in detail today. We did review that her abdominal bloating and discomfort, as well as issues with her hemorrhoids, may very well be in relation to the chronic constipation. I did recommend a trial of some daily or twice a day Metamucil fiber pills with plenty of water, as well as some MiraLAX daily if need be. I did advise her to stay on a healthy diet with plenty of fruits, vegetables, and water. I do not have any of the records in regard to her GI procedures in [place] unfortunately. Based on her report I we will schedule her for a colonoscopy as that had been recommended to her by her physicians in [place]. We did review the rationale for this in regard to colorectal cancer prevention and/or early detection. I also recommended an upper endoscopy on the same day given her ongoing issues with what sounds like daily heartburn. Full consent has been attained from her for both procedures, including risks of bleeding and perforation. The procedures will be done with monitored anesthesia care. In regard to the upper abdominal discomfort I shall also schedule her for an abdominal ultrasound to rule out symptomatic gallstones. I did advise her to continue the omeprazole daily and I will send her a prescription for 40 mg/day since that does seem to have worked better for her than the 20 mg by her description. She is not sure presently whether or not she is taking 20 or 40 mg and therefore I will send the 40 mg to be sure she is on the right dose. Shelbi was comfortable with this plan. Thank you again for allowing me to participate in Shelbi's care. I shall continue to keep you advised of her progress. 08/06/2024 Upper abdominal pain (ICD-10 - R10.10) Overall, Shelbi appears very well. We did review her GI symptoms in detail today. We did review that her abdominal bloating and discomfort, as well as issues with her hemorrhoids, may very well be in relation to the chronic constipation. I did recommend a trial of some daily or twice a day Metamucil fiber pills with plenty of water, as well as some MiraLAX daily if need be. I did advise her to stay on a healthy diet with plenty of fruits, vegetables, and water. I do not have any of the records in regard to her GI procedures in [facility] unfortunately. Based on her report I we will schedule her for a colonoscopy as that had been recommended to her by her physicians in [place]. We did review the rationale for this in regard to colorectal cancer prevention and/or early detection. I also recommended an upper endoscopy on the same day given her ongoing issues with what sounds like daily heartburn. Full consent has been attained from her for both procedures, including risks of bleeding and perforation. The procedures will be done with monitored anesthesia care. In regard to the upper abdominal discomfort I shall also schedule her for an abdominal ultrasound to rule out symptomatic gallstones. I did advise her to continue the omeprazole daily and I will send her a prescription for 40 mg/day since that does seem to have worked better for her than the 20 mg by her description. She is not sure presently whether or not she is taking 20 or 40 mg and therefore I will send the 40 mg to be sure she is on the right dose. Shelbi was comfortable with this plan. Thank you again for allowing me to participate in Shelbi's care. I shall continue to keep you advised of her progress. 08/06/2024 Abdominal bloating (ICD-10 - R14.0) Overall, Shelbi appears very well. We did review her GI symptoms in detail today. We did review that her abdominal bloating and discomfort, as well as issues with her hemorrhoids, may very well be in relation to the chronic constipation. I did recommend a trial of some daily or twice a day Metamucil fiber pills with plenty of water, as well as some MiraLAX daily if need be. I did advise her to stay on a healthy diet with plenty of fruits, vegetables, and water. I do not have any of the records in regard to her GI procedures in [facility] unfortunately. Based on her report I we will schedule her for a colonoscopy as that had been recommended to her by her physicians in [place]. We did review the rationale for this in regard to colorectal cancer prevention and/or early detection. I also recommended an upper endoscopy on the same day given her ongoing issues with what sounds like daily heartburn. Full consent has been attained from her for both procedures, including risks of bleeding and perforation. The procedures will be done with monitored anesthesia care. In regard to the upper abdominal discomfort I shall also schedule her for an abdominal ultrasound to rule out symptomatic gallstones. I did advise her to continue the omeprazole daily and I will send her a prescription for 40 mg/day since that does seem to have worked better for her than the 20 mg by her description. She is not sure presently whether or not she is taking 20 or 40 mg and therefore I will send the 40 mg to be sure she is on the right dose. Shelbi was comfortable with this plan. Thank you again for allowing me to participate in Shelbi's care. I shall continue to keep you advised of her progress. 08/06/2024 Colon cancer screening (ICD-10 - Z12.11) Overall, Shelbi appears very well. We did review her GI symptoms in detail today. We did review that her abdominal bloating and discomfort, as well as issues with her hemorrhoids, may very well be in relation to the chronic constipation. I did recommend a trial of some daily or twice a day Metamucil fiber pills with plenty of water, as well as some MiraLAX daily if need be. I did advise her to stay on a healthy diet with plenty of fruits, vegetables, and water. I do not have any of the records in regard to her GI procedures in [place] unfortunately. Based on her report I we will schedule her for a colonoscopy as that had been recommended to her by her physicians in [place]. We did review the rationale for this in regard to colorectal cancer prevention and/or early detection. I also recommended an upper endoscopy on the same day given her ongoing issues with what sounds like daily heartburn. Full consent has been attained from her for both procedures, including risks of bleeding and perforation. The procedures will be done with monitored anesthesia care. In regard to the upper abdominal discomfort I shall also schedule her for an abdominal ultrasound to rule out symptomatic gallstones. I did advise her to continue the omeprazole daily and I will send her a prescription for 40 mg/day since that does seem to have worked better for her than the 20 mg by her description. She is not sure presently whether or not she is taking 20 or 40 mg and therefore I will send the 40 mg to be sure she is on the right dose. Shelbi was comfortable with this plan. Thank you again for allowing me to participate in Shelbi's care. I shall continue to keep you advised of her progress. Plan Of Treatment Pending Test Test Name Order Date UPPER GI ENDOSCOPY 08/06/2024 COLONOSCOPY 08/06/2024 US abdomen complete 08/06/2024 Next Appt Details Provider Name:Otto Lester , 11/01/2024 07:30:00 AM, [address] [facility] , [place], [place], [id number], Insurance Providers Payer Name Payer Address Payer Phone Subscriber Number Group Number Insured Name Patient Relationship to Insured Coverage Start Date Coverage End Date [facility] [address] [place] [phone] [id number] SHELBI CORTEZ Self - patient is the insured MEDICAID OF [facility] [address] [place] [address] [id number] SHELBI CORTEZ Self - patient is the insured Medical (General) History Medical History History ICD Code Thyroid cancer--surgery as below Sjogren's syndrome Denies CT,DM,CVA,Lung disease,renal dise ase Colonoscopy in approx 2022 i n [place]-1 polyp removed--told to repeat a colonoscopy in 1 year Lupus GERD--EGD in [place] in 2022--told of a hiatal hernia--on 40mg omeprazole at that time Fibromyalgia Surgical History Surgery Date(Month/Year) Thrombosed hemorrhoid Bladder suspension 2011 Partial thyroidectomy on the right---jone glasgow--in 2020
--- OUTSIDE RECORDS SUMMARY | 2024-09-14 16:00 | XMS_ITS | Clinical Summary ---
Author Organization [facility] Address [address] [place] [address] Phone Care Team Providers Care Intervention Manager Name Role Phone Katerin Christianson MD Primary Care Provider [phone] Allergies No known active allergies Medical History [...] 01/21/2024 3:46 PM EST Plan of Treatment Upcoming Encounters Date Type Department Care Team (Late st Contact Info) Description 11/17/2024 1:45 PM EDT Office Visit Orthopedic Surgery [facility] [address] [facility] [address] [place] [address] Froylan Thorpe, DPM [address] [address] Health Maintenance Due Date Last Done Comments [...] 5 Years) and At-Risk Patients (6 to 49 Years) Aged Out No longer eligible b [...] LAB MICROBIOLOGY METHOD 05/03/2024 3:12 PM EST [facility] Brushing/Spatula Cervix uteri structure / Unknown 04/29/2024 05/03/2024 6:44 AM EST Katerin Christianson MD LAB MOLECULAR DIAGNOSTICS ORD ERABLES Final Result [facility] [address] [place] [address], [place] [phone] from Last 3 Months or Most Recently Relevant to Health Maintenance Insurance MEDICAID - [place] [facility] Care Teams Intervention Manager Relationship Specialty Start Date End Date Katerin Christianson MD [address] [place] [address] [place] [address] PCP - General Internal Medicine 07/28/24
== END 2024-09-14 15:59 | disposition home or self-care (01) ==
LOC: HO.ENCR 15:35
PROVIDERS: PCP Internal Medicine; Visit Provider Student in an Organized Health Care Education/Training Program
DX: Z85.850 Personal history of malignant neoplasm of thyroid (principal)
CPT/HCPCS: 99204

== ENCOUNTER 2024-09-23 07:44 | Outpatient (REF) | payer MEDICAID, SELFPAY ==
--- NOTE | ~2024-09-23 | US_ITS ---
CLINICAL HISTORY: UPPER ABDOMINAL PAIN US abdomen complete Comparison: None provided Findings: The visualized pancreas is normal. The aorta and inferior vena cava are normal caliber. The liver is normal in size and echotexture. There is no intrahepatic bile duct dilatation. The common duct is 3.3 mm in diameter. No stones or wall thickening within the gallbladder. There is a tiny echogenic focus along the gallbladder wall which may be related to adenomyomatosis or adherent sludge. There is no sonographic Mojica sign. The main portal vein is antegrade. Kidneys are unremarkable in appearance. The spleen is normal. No ascites. IMPRESSION: Tiny echogenic focus along the gallbladder wall may be related to adenomyosis or adherent sludge. Otherwise, unremarkable abdominal ultrasound. This document has been electronically signed by: Acosta Gonzalez MD on 09/23/2024 09:59:13
--- OUTSIDE RECORDS SUMMARY | 2024-09-23 07:45 | XMS_ITS | Clinical Summary ---
Author Organization [facility] Address [address] [place] [address] Phone Care Team Providers Care Instrument Lens Generator Name Role Phone Katerin Christianson MD Primary Care Provider [phone] Allergies No known active allergies Medical History [...] 1:45 PM EDT Office Visit Orthopedic Surgery [facility] [address] [facility] [address] [place] [address] Froylan Thorpe, DPM [address] [address] Health Maintenance Due Date Last Done Comments Breast Cancer Screening 1975 DTaP,Tdap,and Td Vaccines (1 - Tdap) 09/16/1995 Hepatitis B Vaccines (1 of 3 - 19+ 3-dose series) 09/16/1995 COVID-19 Vaccine ( - 2023-2 5 season) 2023 Colorectal Cancer Screening: Colonoscopy 12/18/2023 Depression Screening 12/18/2023 HIV Screening 12/18/2023 Hepatitis C Screening 12/18/2023 Social Influencers of Health Screening 12/18/2023 Influenza Vaccine (#1) 2024 Cervical Cancer Screening: HPV 04/29/2029 0 [...] LAB MICROBIOLOGY METHOD 05/03/2024 3:12 PM EST [facility] Brushing/Spatula Cervix uteri structure / Unknown 04/29/2024 05/03/2024 6:44 AM EST Katerin Christianson MD LAB MOLECULAR DIAGNOSTICS ORD ERABLES Final Result [facility] [address] [place] [address], [place] [phone] from Last 3 Months or Most Recently Relevant to Health Maintenance Insurance [place] - [place] [facility] Care Teams Instrument Lens Generator Relationship Specialty Start Date End Date Katerin Christianson MD [address] [place] [address] [place] [address] PCP - General Internal Medicine 07/28/24
--- OUTSIDE RECORDS SUMMARY | 2024-09-23 07:45 | XMS_ITS | Patient Health Record ---
Author Organization [facility] Address [address] [place] [address] Care Team Providers Care Client Experience Administrator Name Role Phone Katerin Chrsitianson Primary Care Provider Otto Noble Unavailable [phone] Allergies No Known Allergies Reason For Referral [...] Notes: Nonsmoker; no sig alcohol Born in [place], raised in [place], then lived in [place] for 30 years--came [place] in [place] Problems Problem Type SNOMED Code ICD Code Onset Dates Problem Status W/U Status Risk Notes Problem Constipation (79616529) Constipation (K59.00) Active confirmed Problem Gastroesophageal reflux disease (932164392) GERD (gastroesophage al reflux disease) (K21.9) Active [...] N/A Encounters Encounter Location Date Provider Diagnosis [facility] [address] [place] [address] 08/06/2024 Otto Lester Constipation K59.00 ; GERD [...] in regard to her GI procedures in [facility] unfortunately. Based on her report I we [...] in regard to her GI procedures in [facility] unfortunately. Based on her report I we [...] in regard to her GI procedures in [facility] unfortunately. Based on her report I we [...] in regard to her GI procedures in [facility] unfortunately. Based on her report I we [...] in regard to her GI procedures in [facility] unfortunately. Based on her report I we [...] complete 08/06/2024 Next Appt Details Provider Name:Otto Blake Tayler , 11/01/2024 07:30:00 AM, [address] [facility] , [place], [place], [id number], Insurance Providers Payer Name Payer Address Payer Phone Subscriber Number Group Number Insured Name Patient Relationship to Insured Coverage Start Date Coverage End Date [facility] [address] [place] [phone] [id number] EMMANUEL CORTEZA Self - patient is the insured [place] OF [place]- [employer] Parents [address] [place] [phone] [id number] DANA SHELBI Self - patient is the insured Medical (General) History Medical History History ICD Code Thyroid cancer--surgery as below Sjogren's syndrome Denies [place],DM,CVA,Lung disease,renal dise ase Colonoscopy in approx 2022 i n [place]-1 polyp removed--told to repeat a colonoscopy in 1 year Lupus GERD--EGD in [place] in appro x 2022--told of a hiatal hernia--on 40mg omeprazole at that time Fibromyalgia Surgical History Surgery Date(Month/Year) Thrombosed hemorrhoid Bladder suspension 2011 Partial thyroidectomy on the right---can myah--in [place] 2020
== END 2024-09-23 07:45 | disposition home or self-care (01) ==
LOC: HO.US 07:44
PROVIDERS: PCP Internal Medicine; Visit Provider Internal Medicine
DX: R10.10 Upper abdominal pain, unspecified (principal)
CPT/HCPCS: 76700

== ENCOUNTER → 2024-09-23 07:48 | Outpatient (BNV) | payer MEDICAID, SELFPAY | PROVIDERS: PCP Internal Medicine; Visit Provider Radiology Diagnostic Radiology | DX: R10.10 Upper abdominal pain, unspecified (principal) | CPT/HCPCS: 76700 ==

== ENCOUNTER 2024-10-12 15:42 | Outpatient (REF) | payer OTHER, SELFPAY ==
--- NOTE | ~2024-10-12 | US_ITS ---
EXAMINATION: US THYROID HISTORY: Z85.850 - Personal history of malignant neoplasm of thyroid - ALSO CHECK LN TECHNIQUE: Real-time grayscale ultrasound imaging was performed and images were reviewed. COMPARISON: There are no prior studies available for comparison. FINDINGS: SIZE: The right thyroid lobe is surgically absent. The left thyroid lobe measures 4.4 x 1.4 x 1.4 cm. The isthmus measures 1 mm. FLOW: Flow to the gland is normal. ECHOGENICITY: The echotexture of the gland is homogeneous. NODULES: No thyroid nodules are identified. Multiple ovoid lymph nodes containing a prominent fatty jerad are seen bilaterally including: Right level II node measuring 7 x 9 x 3 mm Right level II lymph node measuring 6 x 9 x 3 mm Right level IB lymph node measuring 14 x 11 x 7 mm Right level IB lymph node measuring 7 x 4 x 8 mm Left level VB lymph node measuring 4 x 6 x 2 mm Left level II lymph node measuring 8 x 12 x 4 mm Left level II lymph node measuring 16 x 6 x 10 mm Left level II lymph node measuring 4 x 8 x 4 mm Left level III lymph node measuring 4 x 5 x 5 mm Left level IB lymph node measuring 16 by 7 x 9 mm Left level IB lymph node measuring 6 x 4 x 5 mm. US/US thyroid IMPRESSION: Status post right thyroidectomy. No nodule seen on the left. Multiple normal appearing lymph nodes are identified in the neck bilaterally as described. ACR TI-RADS Guidelines TR1 (0 points): Benign. No follow-up or biopsy required TR2 (2 points): Not Suspicious. No biopsy or follow up indicated TR3 (3 points): Mildly Suspicious. FNA if >= 2.5 cm, Follow if >= 1.5 cm TR4 (4-6 points): Moderately Suspicious. FNA if >= 1.5 cm, Follow if >= 1.0 cm TR5 (>=7 points): Highly Suspicious. FNA if >= 1.0 cm, Follow if >= 0.5 cm Electronically signed by: Otto Florez MD 10/13/2024 07:03 AM EDT
--- OUTSIDE RECORDS SUMMARY | 2024-10-12 16:05 | XMS_ITS | Patient Health Record ---
Author Organization [facility] Address [address] [place] [address] Care Team Providers Care Weather Teacher Name Role Phone Katerin Christianson Primary Care Provider Unavailab Otto Gaitan [phone] Allergies No Known Allergies Results Component Value Reference Range Notes US abdomen complete (Not yet reviewed by provider) Interpretation: Performing Lab: Notes/Report: [facility] [address] [place] [id number] Ultrasound Report Signed Patient: Shelbi Ortiz MR#: [id number] : 1975 Acct:[id number] Age/Sex: 49 / F ADM Date: 09/23/24 Loc: HO.US Attending Dr: Otto Lester MD Ordering Physician: Otto Lester MD Date of Service: 09/23/24 Procedure(s): US abdomen complete Accession Number(s): [id number] cc: Katerin Christianson MD; Otto Lester MD CLINICAL HISTORY: UPPER ABDOMINAL PAIN US abdomen complete Comparison: None provided Findings: The visualized pancreas is normal. The aorta and inferior vena cava are normal caliber. The liver is normal in size and echotexture. There is no intrahepatic bile duct dilatation. The common duct is 3.3 mm in diameter. No stones or wall thickening within the gallbladder. There is a tiny echogenic focus along the gallbladder wall which may be related to adenomyomatosis or adherent sludge. There is no sonographic Mojica sign. The main portal vein is antegrade. Kidneys are unremarkable in appearance. The spleen is normal. No ascites. IMPRESSION: Tiny echogenic focus along the gallbladder wall may be related to adenomyosis or adherent sludge. Otherwise, unremarkable abdominal ultrasound. This document has been electronically signed by: Acosta Gonzalez MD on 09/23/2024 09:59:13 Dictated By: Acosta Gonzalez MD Signed By: <Electronically signed by Acosta Gonzalez MD in OV> 09/23/24 1000 DD/ 8 TD/TT: 09/23/24958 Event Decorator And Designer: Reason For Referral No Information Medications Medication [...] Notes: Nonsmoker; no sig alcohol Born in [place], raised in [place], then lived in [facility] for 30 years--came to [place] in [place] Problems Problem Type SNOMED Code ICD Code Onset Dates Problem Status W/U Status Risk Notes Problem Constipation (14566027) Constipation (K59.00) Active confirmed Problem Gastroesophageal reflux disease (349704563) GERD (gastroesophage al reflux disease) (K21.9) Active [...] Encounter Location Date Provider Diagnosis [facility] [address] [place] [id number] 08/06/2024 Otto Lester Constipation K59.00 ; GERD [...] in regard to her GI procedures in [facility] unfortunately. Based on her report I [...] in regard to her GI procedures in [facility] unfortunately. Based on her report I [...] in regard to her GI procedures in [facility] unfortunately. Based on her report I [...] in regard to her GI procedures in [facility] unfortunately. Based on her report I [...] in regard to her GI procedures in [facility] unfortunately. Based on her report I [...] in regard to her GI procedures in [facility] unfortunately. Based on her report I [...] 08/06/2024 COLONOSCOPY 08/06/2024 US abdomen complete 08/06/2024 US abdomen complete 09/23/2024 Next Appt Details Provider Name:Otto Lester , 11/01/2024 07:30:00 AM, [address] [place] [address] , [place], [place], [phone], Insurance Providers Payer Name Payer Address Payer Phone Subscriber Number Group Number Insured Name Patient Relationship to Insured Coverage Start Date Coverage End Date [facility] [address] [place] [phone] [id number] SHELBI ORTIZ Self - patient is the insured [facility] [address] [place] [phone] [id number] SHLEBI ORTIZ Self - patient is the insured Medical (General) History Medical History History ICD Code Thyroid cancer--surgery as below Sjogren's syndrome Denies [place],DM,CVA,Lung disease,renal dise ase Colonoscopy in approx 2022 i n [place]-1 polyp removed--told to repeat a colonoscopy in 1 year Lupus GERD--EGD in [place] in appro x 2022--told of a hiatal hernia--on 40mg omeprazole at that time Fibromyalgia Surgical History Surgery Date(Month/Year) Thrombosed hemorrhoid Bladder suspension 2011 Partial thyroidectomy on the right---jone glasgow--in 2020
--- OUTSIDE RECORDS SUMMARY | 2024-10-12 16:05 | XMS_ITS | Clinical Summary ---
Author Organization [facility] Address [address] [place] [address] Phone Care Team Providers Care Preventative Maintenance Technician Name Role Phone Katerin Christianson MD Primary Care Provider [phone] Allergies No known active allergies Medical History [...] 1:45 PM EDT Office Visit Orthopedic Surgery [facility] [address] [facility] [address] [place] [address] Froylan Thorpe, DPM [address] [address] Health Maintenance Due Date Last Done Comments Breast Cancer Screening 1975 DTaP,Tdap,and Td Vaccines (1 - Tdap) 09/16/1995 Hepatitis B Vaccines (1 of 3 - 19+ 3-dose series) 09/16/1995 COVID-19 Vaccine ( - 2023-2 5 season) 2023 Colorectal Cancer Screening: Colonoscopy 12/18/2023 HIV Screening 12/18/2023 Hepatitis C Screening 12/18/2023 Social Influencers of Health Screening 12/18/2023 Depression Screening 03/10/2024 Influenza Vaccine (#1) 2024 Cervical Cancer Screening: [...] LAB MICROBIOLOGY METHOD 05/03/2024 3:12 PM EST [facility] Brushing/Spatula Cervix uteri structure / Unknown 04/29/2024 05/03/2024 6:44 AM EST Katerin Christianson MD LAB MOLECULAR DIAGNOSTICS ORD ERABLES Final Result [facility] [address] [place] [address], [place] [phone] from Last 3 Months or Most Recently Relevant to Health Maintenance Insurance MEDICAID - [place] [facility] Care Teams Preventative Maintenance Technician Relationship Specialty Start Date End Date Katerin Christianson MD [address] [place] [address] [place] [address] PCP - General Internal Medicine 07/28/24
== END 2024-10-12 15:43 | disposition home or self-care (01) ==
LOC: HO.HMGCX 15:42
PROVIDERS: PCP Internal Medicine; Visit Provider Student in an Organized Health Care Education/Training Program
DX: Z85.850 Personal history of malignant neoplasm of thyroid (principal)
CPT/HCPCS: 76536

== ENCOUNTER → 2024-10-12 15:44 | Outpatient (BNV) | payer OTHER, SELFPAY | PROVIDERS: PCP Internal Medicine; Visit Provider Radiology Diagnostic Radiology | DX: Z85.850 Personal history of malignant neoplasm of thyroid (principal) | CPT/HCPCS: 76536 ==

== ENCOUNTER 2024-11-01 06:31 | Day surgery (SDC) | payer OTHER, SELFPAY ==
--- OUTSIDE RECORDS SUMMARY | 2024-09-03 09:47 | XMS_ITS | Clinical Summary ---
Author Organization [facility] Address [address] [place] [address] Phone Care Team Providers Care Auctioneer Art Name Role Phone Katerin Christianson MD Primary Care Provider [phone] Allergies No known active allergies Medical History Medical History Date Comments Lupus [...] 66 01/21/2024 3:46 PM EST Temperature 36.5 C (97.7 F) 01/21/2024 3:46 PM EST Respiratory Rate 16 01/21/2024 3:46 PM EST [...] - 19+ 3-dose series) 09/16/1995 COVID-19 Vaccine (2023-2 5 season) 2023 Colorectal Cancer Screening: Colonoscopy [...] Name Priority Date/Time Associated Diagnosis Comments HPV WITH REFLEX GENOTYPE Routine 04/29/2024 12:00 AM EST Encounter for screening for malignant neoplasm of cervix from Last 3 Months or Most Recently Relevant to Health Maintenance Results * (ABNORMAL) HPV with reflex genotype (04/29/2024 12:00 AM EST) HPV Positive( A) Negative LAB MICROBIOLOGY METHOD 05/03/2024 3:12 PM EST [facility] Brushing/Spatula Cervix uteri structure / Unknown 04/29/2024 05/03/2024 6:44 AM EST Katerin Christianson MD LAB MOLECULAR DIAGNOSTICS ORD ERABLES Final Result [facility] [address] [place] [address], [place] [phone] from Last 3 Months or Most Recently Relevant to Health Maintenance Insurance [place]ICA[place] - [place] [facility] [address] [place] [address] Care Teams Auctioneer Art Relationship Specialty Start Date End Date Katerin Christianson MD [address] [place] [address] [place] [id number] PCP - General Internal Medicine 07/28/24
--- NOTE | 2024-10-29 08:53 | P.CONAN_ITS ---
Documented by User: Nydia Garcia NP 10/29/24 08:54 HPI - Anesthesia Eval Consult details Narrative: 49 yr old female for Upper Endoscopy and Colonoscopy PMFSH Active Problems Active Problems: All Active Problems (Updated 10/28/24 @ 12:31 by Lucille Elder RN) Numbness and tingling in right hand (Acute) History of thyroid cancer (Acute) Past Medical History Medical History (Updated 10/28/24 @ 12:31 by Lucille Elder RN) Nonsmoker Hx of hemorrhoids Hx of heartburn Hx of gastroesophageal reflux (GERD) History of fibromyalgia Hiatal hernia Sjogren syndrome Cancer Fibromyalgia Lupus (systemic lupus erythematosus) History of thyroid cancer Surgical History Surgical History (Updated 10/28/24 @ 12:31 by Lucille Elder RN) History of bladder suspension procedure Hx of partial thyroidectomy Hx of esophagogastroduodenoscopy Hx of colonoscopy History of lobectomy of thyroid Social History Social History Are you a primary clinical manager home care to a significant other at home: No Do you presently have visiting nurse or other home services: No Alcohol intake: never Patient Tobacco Use Status: Never used Tobacco Second Hand Smoke Exposure: No Use of substances other than those prescribed or required for medical reasons: No Have you been hit, kicked, punched, or otherwise hurt by someone within the past year? 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 Current occupational exposures/hazards: No Meds Allergies Allergy/AdvReac Type Severity Reaction Status Date / Time No Known Allergies Allergy Verified 09/14/24 15:40 Home Medications ?Medication ?Instructions ?Recorded ?Confirmed ?Last Taken ?Type hydroxychloroquine 200 mg tablet 400 mg PO DAILY 07/1311/01/24 Unknown History ibuprofen 600 mg tablet 600 mg PO Q6H 07/13/2411/01 Unknown History naproxen 500 mg tablet 500 mg PO BID 07/13/2411/01 Unknown History [id number]-tfffreyjp-pgsmbhqv 3.5 drp ophthalmic (eye) 0 07/13/24 09/14/24 Unknown History mg/mL-10,000 unit/mL-0.1% eye drops omeprazole 40 mg capsule,delayed 40 mg PO DAILY 11/01/24 Unknown History release Exam Pertinent Lab Results Pertinent Lab Results: Laboratory Tests 07/30/24 13:11 WBC 6.1 RBC 4.48 Hgb 12.8 Hct 39.5 Plt Count 200 Documented by User: Miles Mittal MD 11/01/24 07:30 PMF Past Medical History Medical History (Updated 10/28/24 @ 12:31 by Lucille Elder RN) Nonsmoker Hx of hemorrhoids Hx of heartburn Hx of gastroesophageal reflux (GERD) History of fibromyalgia Hiatal hernia Sjogren syndrome Cancer Fibromyalgia Lupus (systemic lupus erythematosus) History of thyroid cancer Functional capacity: independent ambulation Family History Family history of problems with anesthesia: No Surgical History Surgical History (Updated 10/28/24 @ 12:31 by Lucille Elder RN) History of bladder suspension procedure Hx of partial thyroidectomy Hx of esophagogastroduodenoscopy Hx of colonoscopy History of lobectomy of thyroid History of Problems with Anesthesia: No Social History Social History Are you a primary clinical manager home care to a significant other at home: No Do you presently have visiting nurse or other home services: No Alcohol intake: never Patient Tobacco Use Status: Never used Tobacco Second Hand Smoke Exposure: No Use of substances other than those prescribed or required for medical reasons: No Have you been hit, kicked, punched, or otherwise hurt by someone within the past year? 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 Current occupational exposures/hazards: No Meds Allergies Allergy/AdvReac Type Severity Reaction Status Date / Time No Known Allergies Allergy Verified 09/14/24 15:40 Home Medications ?Medication ?Instructions ?Recorded ?Confirmed ?Last Taken ?Type hydroxychloroquine 200 mg tablet 400 mg PO DAILY 07/1311/01/24 Unknown History ibuprofen 600 mg tablet 600 mg PO Q6H 07/13/2411/01 Unknown History naproxen 500 mg tablet 500 mg PO BID 07/13/2411/01 Unknown History [id number]-iacytjwkl-qtfdjsah 3.5 drp ophthalmic (eye) 0 07/13/24 09/14/24 Unknown History mg/mL-10,000 unit/mL-0.1% eye drops omeprazole 40 mg capsule,delayed 40 mg PO DAILY 11/01/24 Unknown History release Exam Airway Mallampati Class: III TM Dist: >3cm Neck ROM: Full Loose/Missing/Broken Teeth: No Heart: RRR Lungs: CTA Assessment and Plan Assessment Anesthesia Assessment: Anesthesia Plan Discussed and Chart Reviewed Final Anesthetic Review Family History of Problems with Anesthesia: No History of Problems with Anesthesia: No NPO: Yes ASA Class: III Final Preanesthetic Review: No Changes in Pt Med Stat, Meds/Allgs Chart Reviewed, Consent Obtained/Reviewed and Anes Risks/Benef Reviewed Patient Risk: Low Procedure Risk: Low Anesthetic Plan Anesthetic Plan: TIVA Disposition: Standard PACU
[2024-11-01 06:41] VITALS: BMI 26.5
[2024-11-01 06:47] VITALS: BP 116/78; PULSE 63; RESP 16; TEMP 36.5; O2SAT 98
[2024-11-01] MEDS: Lactated Ringers 1,000 ML 100 ML IVCONT (06:50)
[2024-11-01 06:55] LABS: UPreg QC Valid YES
[2024-11-01 08:37] VITALS: BP 102/55; PULSE 66; RESP 18; TEMP 36.2; O2SAT 95
--- NOTE | 2024-11-01 08:38 | PM.OP ---
Brief Operative Note Date of Service: 11/01/24 Pre-op diagnosis: GERD, Screening Post-op diagnosis: other (Hiatal hernia, Diverticulosis) Procedure: EGD with bx, Colonoscopy to the cecum and TI Surgeon: Otto Lester MD Anesthesia: MAC Was an Gallery Director used for this Procedure?: No Estimated blood loss (mL): 2.0 Pathology: other (A. EG Junction at 36cm B. Gastric antrum) Condition: stable Disposition: PACU
[2024-11-01 08:52] VITALS: BP 118/76; PULSE 76; RESP 18; TEMP 36.2; O2SAT 98
--- NOTE | 2024-11-01 10:53 | OP_ITS ---
DATE OF SERVICE: 11/01/2024 SURGEON: Otto Lester MD INDICATIONS: The patient presents for evaluation of gastroesophageal reflux, personal history of colon polyps, and colorectal cancer screening. Full consent was obtained from her for this, including risks of bleeding and perforation. PREOPERATIVE DIAGNOSIS: POSTOPERATIVE DIAGNOSIS: Gastroesophageal reflux, personal history of colon polyps, and colorectal cancer screening, small hiatal hernia, diverticulosis, and internal hemorrhoids. PROCEDURE PERFORMED: Esophagogastroduodenoscopy with biopsies and colonoscopy to the cecum and terminal ileum. ESTIMATED BLOOD LOSS: COMPLICATIONS: ANESTHESIA: Medications used, monitored anesthesia care. ASSISTANTS: SPECIMENS: PREOPERATIVE DIAGNOSES: Gastroesophageal reflux, personal history of colon polyps, and colorectal cancer screening. DESCRIPTION OF PROCEDURE: The patient was placed in the left lateral decubitus position. The Olympus video gastroscope was passed in the posterior oropharynx and upper esophagus under direct vision. The scope was passed slowly into the distal esophagus. The gastroesophageal junction appeared at 36 cm. There was some slight irregularity, but no evidence of any esophagitis nor any definitive Stein mucosa. There were no lesions. The scope entered into the stomach. There was a small hiatal hernia. The scope was advanced to pylorus and the duodenum was cannulated to the descending portion. The duodenum including the bulb appeared normal without mass or ulceration. The scope was withdrawn back in the stomach. The gastric antrum and body appeared normal with good peristalsis. Biopsies were obtained from the antrum. The scope was retroflexed visualizing the proximal stomach carefully, which appeared normal, without any sign of mass or ulceration. The scope was straightened. The scope was withdrawn back in the esophagus. Biopsies were obtained at the EG junction at 36 cm. Proximal to this, the esophageal mucosa appeared normal. The scope was withdrawn from the patient. She was turned around for the colonoscopy. The digital rectal exam revealed no abnormalities. The Olympus video pediatric colonoscope was entered into the rectum and advanced easily to the cecum. Once in the cecum, I did identify normal-appearing cecal pouch with appendiceal orifice and a normal-appearing ileocecal valve. The terminal ileum was cannulated and appeared normal. Scope was withdrawn back in the colon. After irrigation and suctioning, I was able to obtain a good visualization of the cecum, including the appendiceal orifice, which appeared normal. The scope was then slowly withdrawn assessing all mucosal surfaces carefully. Preparation for the most part was very good after a lot of irrigation. I did not visualize any sign of polyps, colitis, nor angiodysplasia. There was a mild amount of sigmoid diverticulosis. In the rectum, scope was retroflexed visualizing internal hemorrhoids, but no other pathology. The rectal mucosa appeared normal. Scope was straightened and withdrawn from the patient. She tolerated both procedures well and was returned to recovery area in stable condition. IMPRESSION: 1. Hiatal hernia, gastroesophageal reflux. 2. Rule out gastritis and/or Helicobacter pylori. 3. Diverticulosis. 4. Internal hemorrhoids. PLAN: The results of the biopsies will be checked. She has been advised to continue her omeprazole, but I advised her to use it in the morning rather than at bedtime. She reports that this worked fairly well for her in general, but hopefully by using it in the morning will work better for her than at night. She was advised to have a repeat colonoscopy in 5 years. She will otherwise see me as needed. MD CHRISTINA Gambino/CATE / [id number] MTDD
== END 2024-11-01 09:47 | disposition home or self-care (01) ==
PROVIDERS: Nurse Practitioner; PCP Internal Medicine; Visit Provider Internal Medicine
PROC: (CPT 45378; principal; 2024-11-01 07:30)
DX: Z12.11 Encounter for screening for malignant neoplasm of colon (principal); K57.30 Diverticulosis of large intestine without perforation or abscess without bleeding; K64.8 Other hemorrhoids; Z86.0101 Personal history of adenomatous and serrated colon polyps; K21.9 Gastro-esophageal reflux disease without esophagitis; K44.9 Diaphragmatic hernia without obstruction or gangrene; M32.9 Systemic lupus erythematosus, unspecified; M35.00 Sjogren syndrome, unspecified; Z85.850 Personal history of malignant neoplasm of thyroid; Z79.899 Other long term (current) drug therapy
CPT/HCPCS: 45378; 43239; 81025; 88305; 88313; 88342; J2250; J2704

== ENCOUNTER 2024-11-05 09:40 | Outpatient (AMB) | payer MEDICAID, SELFPAY ==
--- OUTSIDE RECORDS SUMMARY | 2024-11-01 03:30 | XMS_ITS ---
Author Organization [facility] Address [address] [place] [address] Care Team Providers Care Relief Cook Name Role Phone Katerin Christianson Primary Care Provider Unavailab Otto Gaitan [phone] REASON FOR VISIT screening,hx popyps,fam hx colon ca, gerd, upper abd pain Encounters Encounter Location Date Provider Diagnosis [facility] [place] [address] [place] [id number] 11/01/2024 Otto Lester Plan Of Treatment No Information Progress Notes * FLOR CORTEZ YDOB:1975 (49 yo F)Acc No.[id number]:11/01/2024 EGD and COL/MAC Patient: FLOR PAREKH Provider: Nicole Lester MD :1975 A ge:49 Y S ex:Female Date:11/01/2024 Address:[address] [place] [address] Pcp:Katerin Christianson Subjective: * Chief Complaints: * 1 . Screening,hx popyps,fam hx colon ca, gerd, upper abd pain. * Medical History: Objective: * Vitals: Assessment: Plan: * Treatment: * * The named appointment provid er may or may not be the originator of this progress note, and it is not deemed complete until electronically signed by the appointment provider. Sign off status: Pending * Provider: Nicole Lester MD Date: 11/01/2024 Generated for Fito galeano/Amadou/Gabrielasmitting on: 11/05/2024 10:27 AM EDT
[2024-11-05 09:49] VITALS: BP 122/88; PULSE 76; O2SAT 98; BMI 26.9
--- NOTE | 2024-11-05 09:49 | A.OFFVIS_ITS ---
Vital Signs 11/05/24 09:49 Height 5 ft 6 in Weight 166 lb 14.239 oz BMI 26.9 BP 122/88 Blood Pressure Location Lt brachial Position Sitting Pulse 76 Pulse Source Pulse Oximeter Pulse Oximetry (%) 98 Oxygen Delivery Method Room Air Intake Visit Reasons: Thyroid cancer Intake Note: Patient present today for Thyroid cancer office visit. Bilingual Student Tutor Required: No Accompanied by: Self / Same As Patient Allergies No Known Allergies Allergy (Verified 11/05/24 09:53) Medication List - Last Reconciled 11/05/24 by Keesha Hernandez MD hydroxychloroquine 400 mg PO DAILY ibuprofen 600 mg PO Q6H naproxen 500 mg PO BID neomycin-polymyxin B-dexameth 3.5mg/mL-10,000 unit/mL-0.1 % drps ophthalmic (eye) omeprazole 40 mg PO DAILY HPI Comments Details: 48-year-old female coming in today for follow up n of thyroid cancer. Status post right lobectomy 2019, HPI [facility]. History of thyroid cancer All of this was in [place] 2019: found to have to have thyroid nodules 05/2019: FNA biopsy of the right sided nodule, showed thyroid cancer? 2020: Status post right lobectomy which showed cancer. then apparently was followed with surveilance US for left sided nodules, [facility] 20230[facility]: TSH 1.40, thyroglobulin 2.3 07/30/2024: TSH: 1.43 reports some fullness in the neck. No difficulty swallowing. Didnt require levothyroxine . Family history of thyroid cancer in brother and maternal cousin. Never smoker Interval history 09/14/2024: TSH 1.92, free T4 0.83, TG 2.8, TG antibody was in 1 10/12/2024: Ultrasound neck shows right thyroid is surgically absent, left lobe does not show any nodules, multiple bilateral normal-appearing lymph nodes. Physical exam General: sitting comfortably in no acute distress HEENT: normocephalic/atraumatic, moist oral mucosa Neck: supple, symmetrical, no palpable lymph nodes Cardiac: normal heart sounds Pulm: normal breath sounds B/L, no added breath sounds Abd: not distended, no tenderness Extremities: no edema, no signs of myxedema Laboratory Tests 05/21/24 07/30/24 09:52 13:11 TSH 1.40 1.43 Thyroglobulin 2.3 L Laboratory Tests 09/14/24 16:10 TSH 1.92 Free T4 0.83 Thyroglobulin 2.8 H Thyroglobulin Antibody <1 EXAMINATION: US THYROID 10/12/24 HISTORY: Z85.850 - Personal history of malignant neoplasm of thyroid - ALSO CHECK LN TECHNIQUE: Real-time grayscale ultrasound imaging was performed and images were reviewed. COMPARISON: There are no prior studies available for comparison. FINDINGS: SIZE: The right thyroid lobe is surgically absent. The left thyroid lobe measures 4.4 x 1.4 x 1.4 cm. The isthmus measures 1 mm. FLOW: Flow to the gland is normal. ECHOGENICITY: The echotexture of the gland is homogeneous. NODULES: No thyroid nodules are identified. Multiple ovoid lymph nodes containing a prominent fatty jerad are seen bilaterally including: Right level II node measuring 7 x 9 x 3 mm Right level II lymph node measuring 6 x 9 x 3 mm Right level IB lymph node measuring 14 x 11 x 7 mm Right level IB lymph node measuring 7 x 4 x 8 mm Left level VB lymph node measuring 4 x 6 x 2 mm Left level II lymph node measuring 8 x 12 x 4 mm Left level II lymph node measuring 16 x 6 x 10 mm Left level II lymph node measuring 4 x 8 x 4 mm Left level III lymph node measuring 4 x 5 x 5 mm Left level IB lymph node measuring 16 by 7 x 9 mm Left level IB lymph node measuring 6 x 4 x 5 mm. US/US thyroid IMPRESSION: Status post right thyroidectomy. No nodule seen on the left. Multiple normal appearing lymph nodes are identified in the neck bilaterally as described. [facility] Medical History (Updated 10/28/24 @ 12:31 by Lucille Elder RN) Nonsmoker Hx of hemorrhoids Hx of heartburn Hx of gastroesophageal reflux (GERD) History of fibromyalgia Hiatal hernia Sjogren syndrome Cancer Fibromyalgia Lupus (systemic lupus erythematosus) History of thyroid cancer Surgical History History of bladder suspension procedure Hx of partial thyroidectomy Hx of esophagogastroduodenoscopy Hx of colonoscopy History of lobectomy of thyroid Social History Are you a primary home care assistant to a significant other at home: No Do you presently have visiting nurse or other home services: No Alcohol intake: never Patient Tobacco Use Status: Never used Tobacco Second Hand Smoke Exposure: No Current occupational status: employed 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 This was diagnosed in [place], status post right lobectomy 2019 with pathology showing thyroid cancer. I do not have any pathology report so I do not know the staging or SHAILA risk of recurrence. I am assuming it must have been a low risk cancer given that they did not proceed with completion thyroidectomy or radioactive iodine. She is going to try to obtain some of her records and get them translated because they are in Ecuadorean. 09/14/2024: TSH 1.92, free T4 0.83, TG 2.8, TG antibody was in 1 10/12/2024: Ultrasound neck shows right thyroid is surgically absent, left lobe does not show any nodules, multiple bilateral normal-appearing lymph nodes. She did not require levothyroxine postoperatively. Also her thyroglobulin level of 2.8 is reassuring as after lobectomy ideally we would like to see a level below 30. Plan: -patient will bring us records for review once translated -ordered TSH, free T4, TG and TG antibody levels to be done prior to follow up in October 2025 -depending on what her records say, we will consider whether she needs an ultrasound of the neck next year prior to follow up in October 2025 or not Plan See above Orders: Orders Thyroid Stimulating Hormone 09/19/25 Z85.850 - Personal history of malignant neoplasm of thyroid Free T4 (Free Thyroxine) 09/19/25 Z85.850 - Personal history of malignant neoplasm of thyroid Thyroglobulin Antibodies 09/19/25 Z85.850 - Personal history of malignant neoplasm of thyroid Thyroglobulin 09/19/25 Z85.850 - Personal history of malignant neoplasm of thyroid Thyroglobulin Tumor Marker 09/19/25 Z85.850 - Personal history of malignant neoplasm of thyroid Patient Instructions: Please drop over translated documents for my review hard copies Do blood work 2 weeks prior to your next follow up in 1 year in October 2025 Coding Level of Care Code Est Pt Level 3 (00914) Complex EM visit Add On G2211 Diagnoses History of thyroid cancer Z85.850
--- OUTSIDE RECORDS SUMMARY | 2024-11-05 10:27 | XMS_ITS | Encounter Summary ---
Author Organization [employer] Address [address] [place] [address] Care Team Providers Care Wood Model Maker Name Role Phone Katerin Christianson MD Primary Care Provider [phone] Encounter Details Date Type Department Care Team (Late st Contact Info) Description 05/03/2024 Lab Requisition [facility] - Main Lab [address] [facility] [email or web address] [address] Katerin Christianson MD [address] [place] [address] [place] [address] Encounter for screening for malignant neoplasm of [...] 5:21 PM EST Reymundo Booth RN * Do you have serious difficulty [...] documented in this encounter Plan of Treatment Upcoming Encounters Date Type Department Care Team (Late st Contact Info) Description 11/17/2024 1:45 PM EDT Office Visit Orthopedic Surgery - [address] [phone] Froylan Thorpe DPM [address] [place] [phone] documented as of this encounter Procedures Procedure [...] Negative LAB MICROBIOLOGY METHOD 05/07/2024 5:39 PM [facility] HPV Type 18/45 Positive(A) Negative LAB MICROBIOLOGY METHOD 05/07/2024 5:39 PM [facility] HPV Type 16,18, and others Valid LAB MICROBIOLOGY METHOD 05/07/2024 5:39 PM [facility] Brushing/Spatula Cervix uteri structure / Unknown 04/29/2024 05/03/2024 6:44 AM EST us Katerin Christianson MD LAB MOLECULAR DIAGNOSTICS ORD ERABLES Final Result Performing Organization Address City/[facility]/ZIP Co de Phone Number [facility] [address] [place] [address], [place] [phone] * (ABNORMAL) HPV with reflex genotype (04/29/2024 12:00 AM EST) HPV Positive( A) Negative LAB MICROBIOLOGY METHOD 05/03/2024 3:12 PM [facility] Brushing/Spatula Cervix uteri structure / Unknown 04/29/2024 05/03/2024 6:44 AM EST us Katerin Christianson MD LAB MOLECULAR DIAGNOSTICS ORD ERABLES Final Result Performing Organization Address [facility] Co de Phone Number [facility] [address] [place] [address], [place] [phone] * Pap smear (04/29/2024 12:00 AM EST) Interpretation Negative for intraepithelial lesion or malignancy 05/05/2024 4:45 PM [facility] Other Findings Shift in rand suggestive of bacterial vaginosis 05/05/2024 4:45 PM [facility] Specimen Adequacy Satisfactory for evaluation, endocervical/dowell sformation zone component present 05/05/2024 4:45 PM [facility] Pap Methodology Liquid Based Pap Test 05/05/2024 4:45 PM [facility] Disclaimer The Pap test is a screening test which carries an inherent false negative rate. These test results should be correlated with the patient's clinical findings and history. This Pap test was processed using an automated screening system. Technical cytopathology services provided by [facility], at [address] [place] [address] (CLIA # [id number]/Kristy Rodriguez MD, Card Feeder.) 05/05/2024 4:45 PM EST [facility] Console Pap Interpretation Reported 05/05/2024 4:45 PM EST [facility] Brushing/Spatula Cervix uteri structure / Unknown 04/29/2024 05/03/2024 6:44 AM EST us Katerin Christianson MD LAB CYTOLOGY ORDERABLES Final Result [facility]) [facility] [address] [place] [address], documented in this encounter Visit Diagnoses Diagnosis Encounter for screening for malignant neoplasm of cervix documented in this encounter Care Teams Wood Model Maker Relationship Specialty Start Date End Date Katerin Christianson MD [address] [place] [address] [place] [address] PCP - General Internal Medicine 07/28/24 documented as of this encounter
--- OUTSIDE RECORDS SUMMARY | 2024-11-05 10:27 | XMS_ITS | Patient Health Record ---
Author Organization [facility] Address [address] [place] [address] Care Team Providers Care Hub Borer Name Role Phone Katerin Christianson Primary Care Provider UnavailOtto Manuel [phone] Allergies No Known Allergies Results Component Value Reference Range Notes US abdomen complete Reviewed date:10/31/2024 05:24:35 PM Interpretation: Performing Lab: Notes/Report: [facility] [address] [place] [id number] Ultrasound Report Signed Patient: Shelbi Ortiz MR#: [id number] : 1975 Acct:[id number] Age/Sex: 49 / F ADM Date: 09/23/24 Loc: HO.US Attending Dr: Otto Lester MD Ordering Physician: Otto Lester MD Date of Service: 09/23/24 Procedure(s): US abdomen complete Accession Number(s): [id number] cc: Katerin Christianson MD; Otto Lester MD [...] Gonzalez MD in OV> 09/23/24 1000 DD/ TD/TT: 09/23/24 0959 Waste Collection Driver: Ur Preg Test Reviewed date:11/01/2024 11:05:24 PM Interpretation: Performing Lab:[facility], [address] [place] [phone] Notes/Report: Urine NEGATIVE NEGATIVE This test was developed to detect early . False negative results may occur after the 5th - 7th week of when using this test method. If clinically indicated, consider a serum hCG. Pathology (Not yet reviewed by provider) Interpretation: Performing Lab:[address] [address] Notes/Report: Reason For Referral No Information Medications Medication [...] alcohol Born in [place], raised in [place], then lived in [facility] for [place] years--came [place] in [place]23 Problems Problem Type SNOMED Code ICD Code Onset Dates Problem Status W/U Status Risk Notes Problem Constipation (03175549) Constipation (K59.00) Active confirmed Problem Gastroesophageal reflux disease (679287397) GERD (gastroesophage al reflux disease) (K21.9) Active [...] N/A Encounters Encounter Location Date Provider Diagnosis [facility] Outpatient [address] [place], [place] [phone] 11/01/2024 Otto Lester [facility] [address] [place] [address] 08/06/2024 Otto Lester Constipation K59.00 ; GERD [...] in regard to her GI procedures in [place] [facility] unfortunately. Based on her report [...] in regard to her GI procedures in [place] unfortunately. Based on her report [...] in regard to her GI procedures in [place] unfortunately. Based on her report [...] in regard to her GI procedures in [place] [facility] unfortunately. Based on her report [...] Date UPPER GI ENDOSCOPY 08/06/2024 COLONOSCOPY 08/06/2024 Pathology 11/01/2024 US abdomen complete 08/06/2024 Insurance Providers Payer Name Payer Address Payer Phone Subscriber Number Group Number Insured Name Patient Relationship to Insured Coverage Start Date Coverage End Date [facility] [address] [place] [address] [id number] SHELBI ORTIZ Self - patient is the insured MEDICAID OF [employer] [address] [place] [id number] SHELBI ORTIZ Self - patient is the insured Medical (General) History Medical History History ICD Code Thyroid cancer--surgery as below Sjogren's syndrome Denies [place],DM,CVA,Lung disease,renal dise ase Colonoscopy in approx 2022 i n [place]-1 polyp removed--told to repeat a colonoscopy in 1 year Lupus GERD--EGD in [place] in 2022--told of a hiatal hernia--on 40mg omeprazole at that time Fibromyalgia Surgical History Surgery Date(Month/Year) Thrombosed hemorrhoid Bladder suspension 2011 Partial thyroidectomy on the right---jone glasgow--in 2020
--- OUTSIDE RECORDS SUMMARY | 2024-11-05 10:27 | XMS_ITS | Clinical Summary ---
Author Organization [facility] Address [address] [place] [address] Phone Care Team Providers Care Human Services Case Manager Name Role Phone Katerin Christianson MD Primary Care Provider [phone] Allergies No known active allergies Medical History [...] 1:45 PM EDT Office Visit Orthopedic Surgery [facility] [address] [facility] [address] [place] [address] Froylan Thorpe, DPM [address] [place] [address] Health Maintenance Due Date Last Done Comments [...] LAB MICROBIOLOGY METHOD 05/03/2024 3:[address] [facility] Brushing/Spatula Cervix uteri structure / Unknown 04/29/2024 05/03/2024 6:44 AM EST Katerin Christianson MD LAB MOLECULAR DIAGNOSTICS ORD ERABLES Final Result [facility] [address] [place] [address], [place] [phone] from Last 3 Months or Most Recently Relevant to Health Maintenance Insurance [place] - [place] [facility] [address] [place] [address] Care Teams Human Services Case Manager Relationship Specialty Start Date End Date Katerin Christianson MD [address] [place] [address] [place] [address] PCP - General Internal Medicine 07/28/24
== END 2024-11-05 10:09 | disposition home or self-care (01) ==
LOC: HO.ENCR 09:41
PROVIDERS: PCP Internal Medicine; Visit Provider Student in an Organized Health Care Education/Training Program
DX: Z85.850 Personal history of malignant neoplasm of thyroid (principal)
CPT/HCPCS: 99213

== ENCOUNTER → 2024-11-05 09:40 | Outpatient (BNVA) | payer MEDICAID, SELFPAY | PROVIDERS: PCP Internal Medicine; Visit Provider Student in an Organized Health Care Education/Training Program | DX: Z85.850 Personal history of malignant neoplasm of thyroid (principal) | CPT/HCPCS: 99212 ==

== ENCOUNTER 2024-11-11 21:59 | Emergency (ER) | payer OTHER, MEDICAID, SELFPAY ==
[2024-11-11 22:01] VITALS: BP 168/88; PULSE 74; RESP 16; TEMP 36.4; O2SAT 100; BMI 33.1
[2024-11-11] MEDS: Lidocaine 4 % Cream KIT 1 APPL TOPICAL (23:04)
[2024-11-11] MEDS: oxyCODONE HCl Immed Release 5 MG TABLET 10 MG PO (23:04)
--- NOTE | 2024-11-11 23:22 | ED.SKABFB ---
HPI - Skin/Abscess/Foreign Bdy General Chief complaint: Skin/Abscess/Foreign Body Stated complaint: ? pimple pubic area Time Seen by Provider: 11/11/24 22:30 Source: patient Mode of arrival: ambulatory Limitations: no limitations History of Present Illness ED Provider: ANDRADE CRAIN narrative: 49 yo female with PMH of lupus on plaquenil only who has had increasing boil and subj fevers to R pubic area. She does shave. She has no hx of MRSA. No n/v/d. She is not on blood thinners. Took lynne MANJARREZ MD complaint: abscess/boil Onset (ago): day(s) (2) Tetanus up to date: yes Location: genitals Severity: moderate Quality: aching Pain Consistency: constant Relieving factors: none Exacerbating factors: palpation Context: none Associated symptoms: fever (subjective) Treatments prior to arrival: none Related Data Home Medications ?Medication ?Instructions ?Recorded ?Confirmed hydroxychloroquine 200 mg tablet 400 mg PO DAILY 07/13/24 11/05/24 ibuprofen 600 mg tablet 600 mg PO Q6H 07/13/24 11/05/24 naproxen 500 mg tablet 500 mg PO BID 07/13/24 11/05/24 [id number]-cteipjaa 3.5 drp ophthalmic (eye) 07/13/24 11/05/24 mg/mL-10,000 unit/mL-0.1% eye drops omeprazole 40 mg capsule,delayed 40 mg PO DAILY 07/13/24 11/05/24 release Previous Rx's ?Medication ?Instructions ?Recorded cephalexin 500 mg capsule 500 mg PO QID 7 days #28 caps 11/12/24 doxycycline hyclate 100 mg capsule 100 mg PO BID 7 days #14 caps 11/12/24 hydrocodone 5 mg-acetaminophen 325 1 tab PO Q6H PRN pain #8 tabs 11/12/24 mg tablet ondansetron 4 mg disintegrating 4 mg PO Q8H PRN nausea and 11/12/24 tablet vomiting #20 tabs Allergies Allergy/AdvReac Type Severity Reaction Status Date / Time No Known Allergies Allergy Verified 11/11/24 22:02 Review of Systems Review of Systems: Constitutional : pos Fever, No Chills ENT/Mouth : No sore throat, No Rhinorrhea Eyes: No Eye Pain, No Swelling, No Redness Cardiovascular : No Chest Pain, No SOB Respiratory : No Cough, No Sputum Gastrointestinal : No Nausea, No Vomiting, No Diarrhea, No abdominal Pain Genitourinary : No Dysuria, No Hematuria Musculoskeletal : No joint pain, No Myalgias, No Joint Swelling Skin : No Skin Lesions, positive skin rash Neuro : No Weakness, No Numbness, No Headache All other systems reviewed and are negative PMFSH Past Medical History Attestation statement: The following information was validated with the patient. Source: old records reviewed Medical History Nonsmoker Hx of hemorrhoids Hx of heartburn Hx of gastroesophageal reflux (GERD) History of fibromyalgia Hiatal hernia Sjogren syndrome Cancer Fibromyalgia Lupus (systemic lupus erythematosus) History of thyroid cancer Surgical History History of bladder suspension procedure Hx of partial thyroidectomy Hx of esophagogastroduodenoscopy Hx of colonoscopy History of lobectomy of thyroid Social History Social History Are you a primary primary health care nurse to a significant other at home: No Do you presently have visiting nurse or other home services: No Alcohol intake: never Patient Tobacco Use Status: Never used Tobacco Second Hand Smoke Exposure: No Advance Directives: No Current occupational status: employed 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 Oriented X3. No acute distress. Eyes: Pupils equal, round and reactive to light. ENT: Pharynx normal. Neck: Normal inspection. Neck supple. CVS: Normal heart rate and rhythm. Pulses normal. Respiratory: No respiratory distress. Breath sounds normal. Abdomen: Soft and nontender. Skin: Skin warm and dry. Normal skin color. R pubic area on R lateral mons is a fluctuance quarter size abscess with overlying redness but there is no extension of redness or abscess to labia/groin area. Extremities: No lower extremity edema. Neuro: Oriented X 3. No motor deficit. No sensory deficit. CN2-12 intact Medications Administered Discontinued Medications Generic Name Dose Route Start Last Admin Trade Name Milla PRN Reason Stop Dose Admin Lidocaine HCl 1 appl 11/11/24 22:55 11/11/24 23:04 Lidocaine 4 % Cream Kit TOPICAL 11/11/24 22:56 1 appl ONCE ONE Administration Protocol Lidocaine HCl 5 ml 11/11/24 22:55 11/11/24 23:54 Lidocaine Hcl 1 % Mpf 5 Ml Vial SUBCUT 11/11/24 22:56 5 ml ONCE ONE Administration Ondansetron HCl 4 mg 11/11/24 22:55 11/11/24 23:04 Ondansetron Odt 4 Mg Tab.Rapdis TRANSLINGU 11/11/24 22:56 4 mg ONCE ONE Administration Oxycodone HCl 10 mg 11/11/24 22:55 11/11/24 23:04 Oxycodone Hcl Immed Release 5 Mg Tablet PO 11/11/24 22:56 10 mg ONCE ONE Administration Medical Decision Making Medical Decision Making MDM Narrative: 49 yo female with PMH of lupus on plaquenil now here with reported fever though never checked it and she has no n/v or other systemic symptoms. At this time will give oral pain medications and attempt to drain it. If successful will start on oral abx and close follow up Differential Diagnosis Differential Diagnoses: The differential diagnosis associated with the presentation includes abscess Admission/Observation Consideration of admission/observation: Escalation of care including admission/observation considered VS stable here afebrile and never checked temp at home at this time will I+D and start on oral abx Procedures Abscess I/D Site: other Side (if applicable): right Local Anesthetic: lidocaine 1% Amount of anesthesia used (mL): 10 Technique: incised with blade Amount of fluid expressed (mL): 4 Sent for culture/gram staining?: No Irrigation: Yes Packing used?: iodoform Discharge Plan Discharge Clinical Impression: Abscess of skin or subcutaneous tissue Qualifiers: Site of cutaneous abscess: unspecified site Qualified Code(s): L02.91 - Cutaneous abscess, unspecified Patient Disposition: Home, Self-Care Instructions: Abscess (ED), Incision and Drainage (ED) Additional Instructions: okay to shower keep clean dry and covered for 72 hours packing has to come out in 48 hours - urgent care or ED finish all antibiotics return for nausea, fevers, increased redness/drainage On a cephalosporin?antibiotic, softer bowel movements are to be expected. Call your provider if you move your bowels more than 4 times a day, your bowel movements are almost all liquid, or you get a rash.?? On doxycycline, do not take pills immediately before going to bed and swallow pills with plenty of water. Avoid direct sunlight, iron, antacids, and Pepto Bismol. Call your provider if you develop new ringing in your ears, new problems hearing, dizziness, difficulty swallowing, rash, abdominal discomfort, nausea, or diarrhea.? Prescriptions: New doxycycline hyclate 100 mg capsule 100 mg PO BID 7 Days Qty: 14 0RF hydrocodone-acetaminophen 5-325 mg tablet 1 tab PO Q6H PRN (Reason: pain) Qty: 8 0RF Rx Instructions: partial fill okay; Partial Fill upon patient request. cephalexin 500 mg capsule 500 mg PO QID 7 Days Qty: 28 0RF ondansetron 4 mg tablet,disintegrating 4 mg PO Q8H PRN (Reason: nausea and vomiting) Qty: 20 0RF No Action neomycin-polymyxin B-dexameth 3.5mg/mL-10,000 unit/mL-0.1 % drops,suspension ophthalmic (eye) ibuprofen 600 mg tablet 600 mg PO Q6H hydroxychloroquine 200 mg tablet 400 mg PO DAILY omeprazole 40 mg capsule,delayed release(DR/EC) 40 mg PO DAILY naproxen 500 mg tablet 500 mg PO BID Stand Alone Forms: Work/School Release Print Language: Turkish
[2024-11-11] MEDS: Lidocaine HCl 1 % MPF 5 ML VIAL SUBCUT (23:54)
[2024-11-12 00:26] VITALS: BP 144/94; PULSE 68; RESP 16; TEMP 36.7; O2SAT 99
[2024-11-12 00:44] VITALS: BP 144/94; PULSE 68; RESP 16; TEMP 36.7; O2SAT 99
== END 2024-11-12 00:55 | disposition home or self-care (01) ==
PROVIDERS: Emergency Provider Emergency Medicine; PCP Internal Medicine
DX: L02.215 Cutaneous abscess of perineum (principal); R50.9 Fever, unspecified; Z79.899 Other long term (current) drug therapy
CPT/HCPCS: 10060; 99284; J2003

== ENCOUNTER 2024-11-14 21:24 | Emergency (ER) | payer OTHER, MEDICAID, SELFPAY ==
--- OUTSIDE RECORDS SUMMARY | 2024-11-01 03:30 | XMS_ITS ---
Author Organization [facility] Address [address] [place] [address] Care Team Providers Care Director Of Community Center Name Role Phone Katerin Christianson Primary Care Provider Unavailab Otto Gaitan [phone] REASON FOR VISIT screening,hx popyps,fam hx colon ca, gerd, upper abd pain Encounters Encounter Location Date Provider Diagnosis [facility] [facility] Outpatient [address] [place] [phone] 11/01/2024 Otto Lester Plan Of Treatment No Information Progress Notes * FLOR CORTEZ YDOB:1975 (49 yo F)Acc No.[id number]:11/01/2024 EGD and COL/MAC Patient: FLOR PAREKH Provider: Nicole Lester MD :1975 A ge:49 Y S ex:Female Date:11/01/2024 Address:[address] [place] [address] Pcp:Katerin Christianson Subjective: * Chief Complaints: * [...] Pending * Provider: Nicole Lester MD Date: 0 11/01/2024 Generated for Fito galeano/Amadou/eTmakenziesmitting on: 0 11/14/2024 10:24 PM EDT
[2024-11-14 21:39] VITALS: BP 135/91; PULSE 70; RESP 16; TEMP 36.4; O2SAT 98; BMI 29.0
[2024-11-14 22:00] VITALS: BP 135/91; PULSE 70; RESP 16; TEMP 36.4; O2SAT 98
--- NOTE | 2024-11-14 22:10 | ED.GENADULT ---
HPI - General Adult General Chief complaint: General Medical Stated complaint: abscess drained/med is making her not feel good Time Seen by Provider: 11/14/24 22:02 History of Present Illness HPI narrative: Patient is a 49-year-old female presents today with having her packing check. Patient had an I and D done 2 days ago. Also feeling a little dizzy when antibiotics is taken. No dizziness an hour after the antibiotics. Patient has been taking food with her doxycycline. No fever no chills. No chest pain or shortness of breath no focal weakness. Patient is from home. Has been able to have bowel movement although she feels a little constipated. No other symptoms. Related Data Home Medications ?Medication ?Instructions ?Recorded ?Confirmed hydroxychloroquine 200 mg tablet 400 mg PO DAILY 07/13/24 11/05/24 ibuprofen 600 mg tablet 600 mg PO Q6H 07/13/24 11/05/24 naproxen 500 mg tablet 500 mg PO BID 07/13/24 11/05/24 uowwuopx-wapplrnph-wqwwtpwa 3.5 drp ophthalmic (eye) 07/13/24 11/05/24 mg/mL-10,000 unit/mL-0.1% eye drops omeprazole 40 mg capsule,delayed 40 mg PO DAILY 07/13/24 11/05/24 release Previous Rx's ?Medication ?Instructions ?Recorded cephalexin 500 mg capsule 500 mg PO QID 7 days #28 caps 11/12/24 doxycycline hyclate 100 mg capsule 100 mg PO BID 7 days #14 caps 11/12/24 hydrocodone 5 mg-acetaminophen 325 1 tab PO Q6H PRN pain #8 tabs 11/12/24 mg tablet ondansetron 4 mg disintegrating 4 mg PO Q8H PRN nausea and 11/12/24 tablet vomiting #20 tabs Allergies Allergy/AdvReac Type Severity Reaction Status Date / Time No Known Allergies Allergy Verified 11/14/24 21:42 Review of Systems Review of Systems: No fever no chills no chest pain or shortness breath no systemic complaints Yes all other systems are reviewed and are negative PMFSH Past Medical History Attestation statement: The following information was validated with the patient. Medical History Nonsmoker Hx of hemorrhoids Hx of heartburn Hx of gastroesophageal reflux (GERD) History of fibromyalgia Hiatal hernia Sjogren syndrome Cancer Fibromyalgia Lupus (systemic lupus erythematosus) History of thyroid cancer Surgical History History of bladder suspension procedure Hx of partial thyroidectomy Hx of esophagogastroduodenoscopy Hx of colonoscopy History of lobectomy of thyroid Social History Social History Are you a primary insurance healthcare consultant to a significant other at home: No Do you presently have visiting nurse or other home services: No Alcohol intake: never Patient Tobacco Use Status: Never used Tobacco Second Hand Smoke Exposure: No Do you have a plan to hurt others: No Plan Current occupational status: employed 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 Oriented X3. No acute distress. Eyes: Pupils equal, round and reactive to light. ENT: Pharynx normal. Neck: Normal inspection. Neck supple. No lymph nodes noted. No crepitus CVS: Normal heart rate and rhythm. Pulses normal. Normal S1 and S2 Respiratory: No respiratory distress. Breath sounds normal. No Wheezing. No rales Abdomen: Soft and nontender. No rigidity. No distention. good BS x4 Skin: Skin warm and dry. Normal skin color. Normal skin turgor. Abscess in the right pelvic area has already been drained and was packed. The wound looks to be intact. There is no redness. There is no fluctuant material noted. Minimal discharge Extremities: No lower extremity edema. Neurovascular intact to all extremities. No Lacerations. No Rash Neuro: Oriented X 3. No motor deficit. No sensory deficit. Moving all extermities. No slurred speech Vital Signs: Vital Signs - 24 hr 11/14/24 21:39 Temperature 97.6 F Pulse Rate 70 Respiratory Rate 16 Blood Pressure 135/91 H Pulse Oximetry 98 Oxygen Delivery Method Room Air BMI result Body Mass Index 29.0 Medical Decision Making Medical Decision Making MDM Narrative: Packing was removed. The wound appears to be intact there is no redness. Well-appearing. Will discharge patient home. Will check patient's sugar prior to discharge Differential Diagnosis Differential Diagnoses: The differential diagnosis associated with the presentation includes Cellulitis, abscess Admission/Observation Consideration of admission/observation: Escalation of care including admission/observation considered Lab Data MDM Lab Attestation statement: I reviewed the patient's lab results. Prescription Management I considered prescription management with: Antibiotic (Antibiotics already given during previous visit) Chronic Conditions Lupus Discharge Plan Discharge Clinical Impression: Abscess Patient Disposition: Home, Self-Care Instructions: Abscess Follow-up (ED) Prescriptions: No Action doxycycline hyclate 100 mg capsule 100 mg PO BID 7 Days Qty: 14 0RF hydrocodone-acetaminophen 5-325 mg tablet 1 tab PO Q6H PRN (Reason: pain) Qty: 8 0RF Rx Instructions: partial fill okay; Partial Fill upon patient request. cephalexin 500 mg capsule 500 mg PO QID 7 Days Qty: 28 0RF ondansetron 4 mg tablet,disintegrating 4 mg PO Q8H PRN (Reason: nausea and vomiting) Qty: 20 0RF neomycin-polymyxin B-dexameth 3.5mg/mL-10,000 unit/mL-0.1 % drops,suspension ophthalmic (eye) ibuprofen 600 mg tablet 600 mg PO Q6H hydroxychloroquine 200 mg tablet 400 mg PO DAILY omeprazole 40 mg capsule,delayed release(DR/EC) 40 mg PO DAILY naproxen 500 mg tablet 500 mg PO BID Referrals: Katerin Christianson MD [Primary Care Provider, Internal Medicine] - 11/17/24 Referral Note: Follow-up as needed. Please take your antibiotics. Print Language: Azeri
--- OUTSIDE RECORDS SUMMARY | 2024-11-14 22:24 | XMS_ITS | Clinical Summary ---
Author Organization [facility] Address [address] [place] [address] Phone Care Team Providers Care Account Solutions Analyst Name Role Phone Katerin Christianson MD Primary Care Provider [phone] Allergies No known active allergies Medical History [...] 1:45 PM EDT Office Visit Orthopedic Surgery [facility] [address] [facility] [address] [place] [address] Fryolan Thorpe, DPM [address] [address] Health Maintenance Due Date Last Done Comments Breast Cancer Screening 1975 DTaP,Tdap,and Td Vaccines (1 - Tdap) 09/16/1995 Hepatitis B Vaccines (1 of 3 - 19+ 3-dose series) 09/16/1995 Colorectal Cancer Screening: Colonoscopy 12/18/2023 HIV Screening 12/18/2023 Hepatitis C Screening 12/18/2023 Social Influencers of Health Screening 12/18/2023 Depression Screening 03/10/2024 COVID-19 Vaccine (2023-2 5 season) 2024 Influenza Vaccine (#1) 2024 Cervical Cancer Screening: [...] LAB MICROBIOLOGY METHOD 05/03/2024 3:12 PM EST [facility] Brushing/Spatula Cervix uteri structure / Unknown 04/29/2024 05/03/2024 6:44 AM EST Katerin Christianson MD LAB MOLECULAR DIAGNOSTICS ORD ERABLES Final Result [facility] [address] [place] [address], [place] [phone] from Last 3 Months or Most Recently Relevant to Health Maintenance Insurance MEDICAID - [place] [facility] Care Teams Account Solutions Analyst Relationship Specialty Start Date End Date Katerin Christianson MD [address] [place] [address] [place] [address] PCP - General Internal Medicine 07/28/24
--- OUTSIDE RECORDS SUMMARY | 2024-11-14 22:24 | XMS_ITS | Patient Health Record ---
Author Organization [facility] Address [address] [place] [address] Care Team Providers Care Hydro Excavation Operator Name Role Phone Katerin Christianson Primary Care Provider UnavailOtto Manuel [phone] Allergies No Known Allergies Results Component Value Reference Range Notes US abdomen complete Reviewed date:10/31/2024 05:24:35 PM Interpretation: Performing Lab: Notes/Report: [facility] [address] [place] [id number] Ultrasound Report Signed Patient: Shelbi Ortiz MR#: [id number] : 1975 Acct:[id number] Age/Sex: 49 / F ADM Date: 09/23/24 Loc: HO.US Attending Dr: Otto Lester MD Ordering Physician: Otto Lester MD Date of Service: 09/23/24 Procedure(s): US abdomen complete Accession Number(s): [id number] cc: Katerin Christianson MD; Otto Lester MD [...] OV> 09/23/24 1000 DD/ TD/TT: 09/23/24 0959 Felt Hat Pouncing Operator Hand: Ur Preg Test Reviewed date:11/01/2024 11:05:24 PM Interpretation: Performing Lab:[facility], [address] [place] [phone] Notes/Report: Urine NEGATIVE NEGATIVE This test was developed to detect early . False negative results may occur after the 5th - 7th week of when using this test method. If clinically indicated, consider a serum hCG. Pathology (Not yet reviewed by provider) Interpretation: Performing Lab:[address] [address] Notes/Report: Reason For Referral No Information Medications [...] Notes: Nonsmoker; no sig alcohol Born [place], raised in [place], then lived in [place] [facility] for [place] years--came [place] in [place] Problems Problem Type SNOMED Code ICD Code Onset Dates Problem Status W/U Status Risk Notes Problem Constipation (54792393) Constipation (K59.00) Active confirmed Problem Gastroesophageal reflux disease (353602328) GERD (gastroesophage al reflux disease) (K21.9) Active [...] N/A Encounters Encounter Location Date Provider Diagnosis [facility] [facility] Outpatient [address] [place], [place] [id number] 11/01/2024 Otto Lester [facility] [address] [place] [address] 08/06/2024 Otto Lester Constipation K59.00 ; GERD [...] in regard to her GI procedures in [facility] unfortunately. Based on her report I we [...] in regard to her GI procedures in [facility] unfortunately. Based on her report I we [...] in regard to her GI procedures in [facility] unfortunately. Based on her report I we [...] in regard to her GI procedures in [facility] unfortunately. Based on her report I we [...] Insured Coverage Start Date Coverage End Date [facility] [address] [place] [address] [phone] [id number] SHELBI ORTIZ Self - patient is the insured MEDICAID OF [employer] [address] [place] [id number] [phone] [id number] SHELBI ORTIZ Self - patient is the insured Medical (General) History Medical History History ICD Code Thyroid cancer--surgery as below Sjogren's syndrome Denies [place],DM,CVA,Lung disease,renal dise ase Colonoscopy in approx 2022 i n [place]-1 polyp removed--told to repeat a colonoscopy in 1 year Lupus GERD--EGD in [place] in 2022--told of a hiatal hernia--on 40mg omeprazole at that time Fibromyalgia Surgical History Surgery Date(Month/Year) Thrombosed hemorrhoid Bladder suspension 2011 Partial thyroidectomy on the right---jone [place]--in 2020
--- OUTSIDE RECORDS SUMMARY | 2024-11-14 22:24 | XMS_ITS | Encounter Summary ---
Author Organization [facility] Address [address] [place] [address] Care Team Providers Care Grand Scribe Name Role Phone Katerin Christianson MD Primary Care Provider [phone] Encounter Details Date Type Department Care Team (Late st Contact Info) Description 05/03/2024 Lab Requisition [facility] Lab [address] [facility] [place] [address] Katerin Christianson MD [address] [place] [address] [place] [id number] Encounter for screening for malignant neoplasm of [...] PM EDT Office Visit Orthopedic Surgery - [place] [address] [address] Froylan Thorpe, DPHayden [address] [address] documented as of this encounter Procedures Procedure [...] Negative LAB MICROBIOLOGY METHOD 05/07/2024 5:39 PM [facility] HPV Type 18/45 Positive(A) Negative LAB MICROBIOLOGY METHOD 05/07/2024 5:39 PM [facility] HPV Type 16,18, and others Valid LAB MICROBIOLOGY METHOD 05/07/2024 5:39 PM [facility] Brushing/Spatula Cervix uteri structure / Unknown 04/29/2024 05/03/2024 6:44 AM EST us Katerin Christianson MD LAB MOLECULAR DIAGNOSTICS ORD ERABLES Final Result [facility] [address] [place] [address], [place] [phone] * (ABNORMAL) HPV with reflex genotype (04/29/2024 12:00 AM EST) HPV Positive( A) Negative LAB MICROBIOLOGY METHOD 05/03/2024 3:12 PM EST [facility] Brushing/Spatula Cervix uteri structure / Unknown 04/29/2024 05/03/2024 6:44 AM EST us Katerin Christianson MD LAB MOLECULAR DIAGNOSTICS ORD ERABLES Final Result Performing Organization Address [facility]/ZIP Co de Phone Number [facility] [address] [place] [address], [place] [phone] * Pap smear (04/29/2024 12:00 AM EST) Interpretation Negative for intraepithelial lesion or malignancy 05/05/2024 4:45 PM [facility] Other Findings Shift in rand suggestive of bacterial vaginosis 05/05/2024 4:45 PM [facility] Specimen Adequacy Satisfactory for evaluation, endocervical/dowell sformation zone component present 05/05/2024 4:45 PM [facility] Pap Methodology Liquid Based Pap Test 05/05/2024 4:45 PM [facility] Disclaimer The Pap test is a screening test which carries an inherent false negative rate. These test results should be correlated with the patient's clinical findings and history. This Pap test was processed using an automated screening system. Technical cytopathology services provided by [facility], at [address] [place] [address] (CLIA # [id number]/Kristy Rodriguez MD, Philosophy And Religion Instructor.) 05/05/2024 4:45 PM EST [facility] Console Pap Interpretation Reported 05/05/2024 4:45 PM EST [facility] Brushing/Spatula Cervix uteri structure / Unknown 04/29/2024 05/03/2024 6:44 AM EST us Katerin Christianson MD LAB CYTOLOGY ORDERABLES Final Result [facility] [address] [place] [address], documented in this encounter Visit Diagnoses Diagnosis Encounter for screening for malignant neoplasm of cervix documented in this encounter Care Teams Grand Scribe Relationship Specialty Start Date End Date Katerin Christianson MD [address] [place] [address] [place] [address] PCP - General Internal Medicine 07/28/24 documented as of this encounter
[2024-11-14 22:30] VITALS: BP 135/91; PULSE 70; RESP 16; TEMP 36.4; O2SAT 98
[2024-11-16 06:26] LABS: Glucose, Whole Blood 84 mg/dL (60-115)
== END 2024-11-14 22:31 | disposition home or self-care (01) ==
LOC: HO.ED 22:22
PROVIDERS: Emergency Provider Emergency Medicine Emergency Medical Services; PCP Internal Medicine
DX: L02.91 Cutaneous abscess, unspecified (principal); R42 Dizziness and giddiness
CPT/HCPCS: 82947; 99283; 99284